=== PATIENT | male | born 1925 | race Hispanic/Latino ===

== ENCOUNTER 2016-10-08 11:45 | Inpatient (IN) | payer MEDICARE ==
[2016-10-08 11:56] VITALS: BMI 20.9
--- NOTE | 2016-10-08 12:50 | ED PDOC ---
Arrival/HPI - General Chief Complaint: Trauma Time Seen by Provider: 10/08/16 12:34 Historian: Patient - History of Present Illness Narrative History of Present Illness (Text): 10/08/16 13:48 Patient is an 89 yo male, past medical history of Parkinson's disease, presents to ED after two falls, one yesterday and one today. Patient initially reports that he went to Dr. William's office yesterday to "have a callous removed" from his right foot yesterday. He denies any symptoms at that time. He states after he went home, "my foot got caught against something" and he fell, landing onto his knees. HE DENIES A PROLONGED PERIOD OF LAYING ON THE GROUND. Patient states he stood right up and walked at his baseline. He states today "my foot got caught again" and he fell. Denies head injury or neck pain, denies chest pain or shortness of breath, denies back pain, denies hip or knee or ankle pain. Denies urinary symptoms. He denies syncope or lightheadedness prior to falling. Denies numbness or weakness. Patient's is present, states that "his legs have been giving out all week". He insists he has been eating and drinking very well. No abdominal pain, no vomiting or decreased appetite. 10/08/16 14:04 Symptom Onset: Sudden Past Medical History - Tetanus Immunization Tetanus Immunization: Up to Date - Cardiac Hx Hypertension: Yes - Neurological Hx Parkinson's Disease: Yes - Psychiatric Hx Depression: No Hx Emotional Abuse: No Hx Physical Abuse: No Hx Substance Use: No - Past Surgical History Past Surgical History: No Previous - Anesthesia Hx Anesthesia: No - Suicidal Assessment Feels Threatened In Home Enviroment: No Family/Social History Family/Social History: Unknown Family HX Smoking Status: Never Smoked Hx Alcohol Use: Yes Hx Substance Use: No Allergies/Home Meds Allergies/Adverse Reactions: Allergies No Known Allergies Allergy (Verified 10/08/16 11:56) Home Medications: Home Meds Medication Instructions Recorded Confirmed Atorvastatin [Lipitor] 10 mg PO DIN 10/08/16 10/08/16 Carbidopa/Levodopa [Sinemet Cr 1 each PO TID 10/08/16 10/08/16 25-100 Tablet] hydroCHLOROthiazide [Microzide] 12.5 mg PO DAILY 10/08/16 10/08/16 Review of Systems - Review of Systems Constitutional: absent: Fatigue, Fevers Eyes: absent: Vision Changes ENT: absent: Hearing Changes Respiratory: absent: SOB Cardiovascular: absent: Chest Pain, Palpitations, Calf Pain, CABRERA Gastrointestinal: absent: Abdominal Pain, Stool Changes, Diarrhea, Nausea, Vomiting Musculoskeletal: Arthralgias, Other (abrasions to b/l knee. eechymosis to right 2nd toe. ). absent: Neck Pain Skin: absent: Rash Neurological: Other (baseline gait disturbance he reports from his Parkinson's nothing worse). absent: Headache, Dizziness, Focal Weakness Psychiatric: absent: Depression Physical Exam - Physical Exam Narrative Physical Exam (Text): 10/08/16 12:48 Head: Atraumatic. Normocephalic. No Eyes: PERRL. EOMI. Conjunctivae are not pale. ENT: Mucous membranes are moist and intact. Oropharynx is clear and symmetric. Neck: Supple. Full ROM. No JVD. No lymphadenopathy. Cardiovascular: Regular rate. Regular rhythm. No murmurs, rubs, or gallops. Distal pulses are 2+ and symmetric. Pulmonary/Chest: No evidence of respiratory distress. Clear to auscultation bilaterally. No wheezing, rales or rhonchi. Abdominal: Soft and non-distended. There is no tenderness. No rebound, guarding, or rigidity. No organomegaly. Good bowel sounds. Back: No CVA tenderness. No midline pain. Extremities: No edema. No cyanosis. No clubbing. Full range of motion in all extremities. No calf tenderness. Abrasions to bilateral knees. No active bleeding. No purulent discharge. No surrounding erythema. ecchymosis to right 2nd toe with dressing to base of right foot. NO HIP PAIN WITH PALPATION OR ROM. NO bony knee pain with palpation, able to flex and extend at knee fully. No ankle pain. Strong DP and PT pulses. Skin: Skin is warm and dry. No petechiae. No purpura. Abrasions to bilateral knees, dressings present, no active bleeding or purulence. Neurological: Alert, awake, and oriented to person, place, time, and situation. No slurred speech. No facial droop. Motor and sensory exam at baseline, no meningeal signs, moves all four extremities equally and with good strength on stretcher. Psychiatric: Good eye contact. Normal interaction, affect, and behavior. Vital Signs Reviewed: Yes Vital Signs Temp Pulse Resp BP Pulse Ox 10/08/16 13:39 67 18 113/55 L 100 10/08/16 12:07 98.7 F 76 16 102/52 L 99 Temperature: Afebrile Blood Pressure: Hypotensive Pulse: Regular Respiratory Rate: Normal Appearance: Positive for: Well-Appearing, Non-Toxic, Comfortable Pain Distress: Mild Mental Status: Positive for: Alert and Oriented X 3 Finger Stick Blood Glucose: 137 Medical Decision Making ED Course and Treatment: 10/08/16 12:51 Impression: Patient is an 89 year old male who has fallen twice in past two days. He insists no syncope or lightheadedness. He insists with multiple interview no chest pain or shortness of breath or diaphoresis or back or abdominal pain. On exam, there is ecchymotic 2nd toe, DJD noted on xray, no obvious fracture. Multiple abrasions noted to anterior legs but NO HIP OR KNEE PAIN, patient has been ambulatory. Abrasions cleaned and dressed. Patient is noted to have elevated CPK, again he insists that he was not lying on ground for prolonged period states he "got up right away". No head injury reported or noted. Cr elevated when compared to previous. IV hydration initiated. BP improved, but patient continues to deny chest pain or lightheadedness. Troponin is elevated. HE DENIES CHEST PAIN. Denies smoking. Denies past cardiac history. As no chest pain or sob, no EKG st elevations, will consult with his patent prosecution attorney for further evaluation of this. ASA ordered. Treatment plan reviewed with patient and , agreeable to admission for cardiac monitoring, serial exams, iv hydration. 10/08/16 14:46 - Lab Interpretations Lab Results: 10/08/16 12:55 10/08/16 12:55 Lab Results 10/08/16 12:55: Sodium 145, Potassium 3.2 L, Chloride 104, Carbon Dioxide 29, Anion Gap 15, BUN 39 H, Creatinine 1.7 H, Est GFR ( Amer) 46, Est GFR ( Non-Af Amer) 38, Random Glucose 96, Calcium 9.9, Total Bilirubin 1.2, AST 104 H , ALT 53, Alkaline Phosphatase 66, Lactate Dehydrogenase 1030 H, Total Creatine Kinase 4996 H, CK-MB (CK-2) 15.5 H, CK-MB (CK-2) % 0.3 L, Troponin I 0.43 H*, Total Protein 7.3, Albumin 4.2, Globulin 3.1, Albumin/Globulin Ratio 1.4 10/08/16 12:55: PT 11.2, INR 1.04, APTT 26.8 10/08/16 12:55: WBC 8.8 D, RBC 3.80, Hgb 12.2 L, Hct 36.6 L, MCV 96.3, MCH 32.1 , MCHC 33.3, RDW 13.8, Plt Count 211, MPV 9.9, Gran % 87.0 H, Lymph % (Auto) 6.0 L, [place] % (Auto) 6.9 H, Eos % (Auto) 0.0 L, Baso % (Auto) 0.1, Gran # 7.63 H , Lymph # 0.5 L, [place] # 0.6, Eos # 0.0, Baso # 0.01 - RAD Interpretation Radiology Orders: 10/08/16 12:42 HEAD W/O CONTRAST [CT] Stat 10/08/16 12:43 FOOT RIGHT 3 VIEWS ROUTINE [RAD] Stat - EKG Interpretation EKG Interpretation (Text): 10/08/16 14:18 EKG at 76 normal sinus rhythm, prlonged qt Interpreted by ED Physician: Yes Type: 12 lead EKG - Medication Orders Current Medication Orders: Acetaminophen (Tylenol 325mg Tab) 650 mg PO Q6H PRN PRN Reason: Fever >100.4 F Atorvastatin Calcium (Lipitor) 10 mg PO DIN JACQUELIN Bacitracin (Bacitracin) 1 gm TOP BID JACQUELIN Carbidopa/Levodopa (Sinemet Cr) 1 tab PO TID JACQUELIN Hydrochlorothiazide (Microzide) 12.5 mg PO DAILY JACQUELIN Sodium Chloride (Sodium Chloride 0.9%) 1,000 mls @ 100 mls/hr IV .Q10H JACQUELIN Sodium Chloride (Sodium Chloride 0.9%) 1,000 mls @ 100 mls/hr IV .Q10H JACQUELIN Pantoprazole Sodium (Protonix Ec Tab) 40 mg PO ACB JACQUELIN Discontinued Medications Aspirin (Aspirin Chewable) 81 mg PO STAT STA Stop: 10/08/16 13:53 Sodium Chloride (Sodium Chloride 0.9%) 500 mls @ 1,000 mls/hr IV .Q30M STA Stop: 10/08/16 13:47 Potassium Chloride (K-Dur 20 Meq Er Tab) 40 meq PO STAT STA Stop: 10/08/16 13:43 Disposition/Present on Arrival - Present on Arrival Any Indicators Present on Arrival: No History of DVT/PE: No History of Uncontrolled Diabetes: No Urinary Catheter: No History of Decub. Ulcer: No History Surgical Site Infection Following: None - Disposition Have Diagnosis and Disposition been Completed?: Yes Diagnosis: Elevated troponin, Rhabdomyolysis, Renal insufficiency, Frequent falls, Abrasion of knee, bilateral, Toe contusion Disposition: HOSPITALIZED Disposition Time: 13:40 Patient Plan: Admission, Telemetry Patient Problems: Current Active Problems Problem Status Onset Abrasion of knee, bilateral Acute Elevated troponin Acute Frequent falls Acute Renal insufficiency Acute Rhabdomyolysis Acute Toe contusion Acute Condition: SERIOUS
[2016-10-08 13:03] LABS: ADD MANUAL DIFF? NO
[2016-10-08 13:07] LABS: BASO # 0.01 K/mm3 (0.0-2.0); BASO % 0.1 % (0.0-3.0); GRAN # 7.63 (1.4-6.5); HEMATOCRIT 36.6 % (42.0-52.0); LYMPH # 0.5 (1.2-3.4); MEAN CELL VOLUME 96.3 fL (80.0-105.0); MEAN CORPUSCULAR HEMOGLOBIN 32.1 pg (25.0-35.0); MEAN CORPUSCULAR HGB CONC 33.3 g/dl (31.0-37.0); MEAN PLATELET VOLUME 9.9 fl (7.0-11.0); MONO # 0.6 (0.1-0.6); MONO % 6.9 % (1.0-6.0); PLATELET COUNT 211 10^3/uL (120.0-450.0); RED CELL DISTRIBUTION WIDTH 13.8 % (11.5-14.5); WHITE BLOOD COUNT 8.8 10^3/ul (4.5-11.0)
[2016-10-08 13:15] LABS: INR 1.04 (0.93-1.08); PARTIAL THROMBOPLASTIN TIME 26.8 Seconds (23.7-30.8)
[2016-10-08 13:16] LABS: ALB/GLOB RATIO 1.4 (1.1-1.8); BILIRUBIN,TOTAL 1.2 mg/dL (0.2-1.3); CALCIUM 9.9 mg/dL (8.4-10.5); POTASSIUM 3.2 mmol/L (3.6-5.0); TOTAL PROTEIN 7.3 g/dL (5.8-8.3)
--- NOTE | 2016-10-08 13:16 | CT ---
PROCEDURE: CT HEAD WITHOUT CONTRAST. HISTORY: frequent falls COMPARISON: 10/08/2013 TECHNIQUE: Axial computed tomography images were obtained through the head/brain without intravenous contrast. Radiation dose: Total exam DLP = 688 mGy-cm. This CT exam was performed using one or more of the following dose reduction techniques: Automated exposure control, adjustment of the mA and/or kV according to patient size, and/or use of iterative reconstruction technique. FINDINGS: HEMORRHAGE: No intracranial hemorrhage. BRAIN: No mass effect or edema. The prior periventricular deep white matter hypo intensities (most pronounced posteriorly) consistent with chronic small vessel chronic small vessel ischemic change appear similar VENTRICLES: Unremarkable. No hydrocephalus. CALVARIUM: Unremarkable. PARANASAL SINUSES: Unremarkable as visualized. No significant inflammatory changes. The prior right maxillary sinus opacification has cleared MASTOID AIR CELLS: Unremarkable as visualized. No inflammatory changes. OTHER FINDINGS: None. IMPRESSION: No intracranial hemorrhage. No calvarial fracture. Chronic small vessel periventricular ischemic changes -similar-appearing
[2016-10-08] MEDS ORDERED: Sodium Chloride 0.9% 500 ML IV STA (13:18)
[2016-10-08 13:35] LABS: TROPONIN I 0.43 ng/mL
[2016-10-08] MEDS ORDERED: Potassium Chloride 20 mEq ER Tab PO STA (13:42)
--- NOTE | 2016-10-08 13:51 | RAD ---
PROCEDURE: Right Foot Radiographs. HISTORY: injury, right second toe pain COMPARISON: None. FINDINGS: BONES: There is apparent resection of the 2nd proximal and middle phalanx -prior postsurgical changes are favored. No supportive history here is mentioned. No prior studies are available. Patchy bone mineralization generalized noted. Hammertoe like orientations. Bifid medial sesamoid -likely a developmental variant JOINTS: First metatarsal-phalangeal joint osteoarthrosis SOFT TISSUES: Atherosclerotic vascular calcifications OTHER FINDINGS: None. IMPRESSION: No acute fracture appreciated. The 2nd toe changes are bleed most consistent with prior surgery. Please correlate clinically. 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
[2016-10-08] MEDS: Sodium Chloride 0.9% 1,000 ML IV SCH (14:30)
[2016-10-08] MEDS ORDERED: Sodium Chloride 0.9% 1,000 ML IV SCH (14:45)
--- NOTE | 2016-10-08 14:47 | CP.PCM.HP ---
<Malorie Elena - Last Filed: 10/08/16 15:11> History of Present Illness - History of Present Illness History of Present Illness: This is an 89Y M with PMH HTN, HLD, Parkinson's disease who came in for multiple falls. His is at bedside. She reports that yesterday the patient had a callus removal by Dr. William on his R foot. Since then he had trouble with his balance. He fell twice yesterday and got up right away. He did not hit his head or lose consciousness. They called the ambulance, but the patient refused. He then fell again this morning and fell on both his knees. He is complaining of mild pain where he fell on his knees and shins. The patient is sitting comfortably in bed, eating a sandwich. He denies CP, SOB, n/v/d, numbness/tingling. PMH: Parkinsons, HTN, HLD, falls PSH: Denies Past hospitalizations: Denies Home meds: Sinemet 25/100mg TID, HCTZ 12.5mg qd, Lipitor 10mg qd All: NKDA SH: Former smoker (quit 2yrs ago), denies EtOH or drug use. Lives with FH: Dad of [place]/Heart failure age 80 PMD: Dr. Alanis Pipe Fitter Supervisor Maintenance: Dr. Alexandre Facilities And Grounds Director: Dr. William Present on Admission - Present on Admission Any Indicators Present on Admission: No Review of Systems - Review of Systems Review of Systems: As per HPI Past Patient History - Tetanus Immunizations Tetanus Immunization: Up to Date - Past Social History Smoking Status: Former Smoker Alcohol: None Drugs: Denies Home Situation {Lives}: With Family - CARDIAC Hx Hypertension: Yes - NEUROLOGICAL Hx Parkinson's Disease: Yes - PSYCHIATRIC Hx Depression: No Hx Emotional Abuse: No Hx Physical Abuse: No Hx Substance Use: No - SURGICAL HISTORY Hx Surgeries: No - ANESTHESIA Hx Anesthesia: No Meds Allergies/Adverse Reactions: Allergies Allergy/AdvReac Type Severity Reaction Status Date / Time No Known Allergies Allergy Verified 10/08/16 11:56 Physical Exam - Constitutional Appears: No Acute Distress - Head Exam Head Exam: NORMAL INSPECTION, NORMOCEPHALIC - Eye Exam Eye Exam: Normal appearance, PERRL Pupil Exam: NORMAL ACCOMODATION - ENT Exam ENT Exam: Mucous Membranes Moist - Neck Exam Neck exam: Positive for: Normal Inspection - Respiratory Exam Respiratory Exam: Clear to Auscultation Bilateral, NORMAL BREATHING PATTERN. absent: Rales, Rhonchi, Wheezes - Cardiovascular Exam Cardiovascular Exam: REGULAR RHYTHM, +S1, +S2, Systolic Murmur. absent: Gallop , Rubs - GI/Abdominal Exam GI & Abdominal Exam: Normal Bowel Sounds, Soft. absent: Guarding, Mass, Rebound , Rigid, Tenderness - Extremities Exam Extremities exam: Positive for: pedal edema (+1). Negative for: calf tenderness , tenderness Additional comments: bilateral scrapes on both knees and shins, no bleeding seen. Dressing in place - Neurological Exam Neurological exam: Alert, CN II-XII Intact, Oriented x3 - Psychiatric Exam Psychiatric exam: Normal Affect, Normal Mood - Skin Skin Exam: Dry, Normal Color, Warm Additional comments: scrapes on both knees Wound on bottom of R foot-dressing in place Results - Vital Signs Recent Vital Signs: Last Vital Signs Temp 98.7 F 10/08/16 12:07 Pulse 67 10/08/16 13:39 Resp 18 10/08/16 13:39 BP 113/55 L 10/08/16 13:39 Pulse Ox 100 10/08/16 13:39 - Labs Result Diagrams: 10/08/16 12:55 10/08/16 12:55 - EKG Data EKG Interpreted by: Myself EKG shows normal: Sinus rhythm Rate: Normal - EKG Data When Compared to Previous EKG: No Significant Change Assessment & Plan - Assessment and Plan (Free Text) Assessment: This is an 89Y M with PMH of HTN, HLD, Parkinson's and multiple falls admitted for fall, elevated troponin, rha Plan: 1. Rhabdomyolysis - Secondary to multiple falls - CK: 5000 - NS@100 - Continue to monitor CK 2. Multiple Falls - CT head negative - Foot XR did not show fracture - Wound care for scrapes, Bacitracin BID - Podiatry Dr. William consulted - Fall precaution - Tylenol prn pain - physical therapy eval 3. TYRA - secondary to rhabdo - Cr: 1.7, Cr on 10/2015 was 1.1 - Continue to monitor - Will continue to monitor electrolytes and replace as needed 4. Elevated Troponin - secondary to rhabdo - Trop: 0.43 - EKG showed NSR - Cardiology: Dr. Alexandre consulted - Continue to monitor troponin - Lipid panel, TSH, HgbA1c - Given ASA in ED 5. HTN - Continue home med: HCTZ 6. HLD - Lipitor 10mg 7. Parkinsons - Continue Sinemet GI ppx: Protonix DVT ppx: Heparin SC Case seen, discussed and reviewed with attending Suleiman Elena PGY1 - Date & Time Date: 10/08/16 Time: 15:11 <Len Isabel - Last Filed: 10/09/16 15:34> Results - Vital Signs Recent Vital Signs: Last Vital Signs Temp 97.3 F L 10/09/16 12:00 Pulse 67 10/09/16 14:00 Resp 18 10/09/16 12:00 BP 137/74 10/09/16 12:00 Pulse Ox 97 10/09/16 05:21 - Labs Result Diagrams: 10/09/16 05:00 10/09/16 05:00 Labs: Laboratory Results - last 24 hr 10/08/16 10/09/16 10/09/16 20:13 02:15 05:00 WBC RBC Hgb Hct MCV MCH MCHC RDW Plt Count MPV Gran % Lymph % (Auto) [place] % (Auto) Eos % (Auto) Baso % (Auto) Gran # Lymph # [place] # Eos # Baso # PT INR Sodium Potassium Chloride Carbon Dioxide Anion Gap BUN Creatinine Est GFR ( Amer) Est GFR (Non-Af Amer) Random Glucose Hemoglobin A1c 5.7 Calcium Total Bilirubin AST ALT Alkaline Phosphatase Total Creatine Kinase CK-MB (CK-2) CK-MB (CK-2) % Troponin I 0.40 H* 0.25 H* D Total Protein Albumin Globulin Albumin/Globulin Ratio Triglycerides Cholesterol LDL Cholesterol Direct HDL Cholesterol TSH 3rd Generation 10/09/16 10/09/16 10/09/16 05:00 05:00 05:00 WBC 7.7 RBC 3.29 L Hgb 10.6 L Hct 32.1 L MCV 97.6 MCH 32.2 MCHC 33.0 RDW 13.8 Plt Count 175 MPV 10.4 Gran % 72.2 H Lymph % (Auto) 16.3 L [place] % (Auto) 10.4 H Eos % (Auto) 0.8 L Baso % (Auto) 0.3 Gran # 5.53 Lymph # 1.3 [place] # 0.8 H Eos # 0.1 Baso # 0.02 PT 11.8 INR 1.09 H Sodium Potassium Chloride Carbon Dioxide Anion Gap BUN Creatinine Est GFR ( Amer) Est GFR (Non-Af Amer) Random Glucose Hemoglobin A1c Calcium Total Bilirubin AST ALT Alkaline Phosphatase Total Creatine Kinase CK-MB (CK-2) CK-MB (CK-2) % Troponin I Total Protein Albumin Globulin Albumin/Globulin Ratio Triglycerides Cholesterol LDL Cholesterol Direct HDL Cholesterol TSH 3rd Generation 1.5 10/09/16 10/09/16 05:00 07:30 WBC RBC Hgb Hct MCV MCH MCHC RDW Plt Count MPV Gran % Lymph % (Auto) [place] % (Auto) Eos % (Auto) Baso % (Auto) Gran # Lymph # [place] # Eos # Baso # PT INR Sodium 141 Potassium 3.0 L Chloride 105 Carbon Dioxide 29 Anion Gap 10 BUN 32 H Creatinine 1.2 Est GFR ( Amer) > 60 Est GFR (Non-Af Amer) 57 Random Glucose 80 Hemoglobin A1c Calcium 8.5 Total Bilirubin 0.9 AST 84 H ALT 36 Alkaline Phosphatase 52 Total Creatine Kinase 2849 H CK-MB (CK-2) 12.2 H CK-MB (CK-2) % 0.4 L Troponin I Total Protein 5.6 L Albumin 3.1 Globulin 2.5 Albumin/Globulin Ratio 1.2 Triglycerides 61 Cholesterol 105 L LDL Cholesterol Direct 54 HDL Cholesterol 39 TSH 3rd Generation Attending/Attestation - Attestation I have personally seen and examined this patient.: Yes I have fully participated in the care of the patient.: Yes I have reviewed all pertinent clinical information: Yes Notes (Text): 10/09/16 15:31 attending note; patient seen and examined with resident in ER. This is a 89 Year old Male with the PMH of HTN, HLD, Parkinson's disease who came in for multiple falls. Denies any fevers, chills. CT head and CT lower extremities is negative for fracture. acute rhabdomyolysis secondary to fall. Continue IV fluids. Elevated troponin and elevated creatinine secondary to rhabdomyolysis. Monitor closely. Cardiology evaluation Requested. check orthostatic blood pressure. PT evaluation requested. case discussed with PMD in detail.
[2016-10-08] MEDS: Bacitracin Ointment 30 GM TUBE TOP SCH (18:25)
[2016-10-08] MEDS: Carbidopa/Levodopa 25/100 CR PO SCH (18:29)
--- NOTE | 2016-10-08 18:43 | CARD ---
APPROVED REPORT EKG Measurement Heart [id number] <Conclusion> Normal sinus rhythm Minimal voltage criteria for LVH, may be normal variant Prolonged QT Consider old anterior infarct Abnormal ECG
[2016-10-09] MEDS: Sodium Chloride 0.9% 1,000 ML IV SCH ×2 (00:13→10:33)
[2016-10-09 05:09] LABS: ADD MANUAL DIFF? NO
[2016-10-09 05:26] LABS: BASO # 0.02 K/mm3 (0.0-2.0); BASO % 0.3 % (0.0-3.0); EOS # 0.1 (0.0-0.7); EOS % 0.8 % (1.5-5.0); GRAN # 5.53 (1.4-6.5); GRAN % 72.2 % (50.0-68.0); HEMATOCRIT 32.1 % (42.0-52.0); LYMPH # 1.3 (1.2-3.4); LYMPH % 16.3 % (22.0-35.0); MEAN CELL VOLUME 97.6 fL (80.0-105.0); MEAN CORPUSCULAR HEMOGLOBIN 32.2 pg (25.0-35.0); MEAN PLATELET VOLUME 10.4 fl (7.0-11.0); MONO # 0.8 (0.1-0.6); MONO % 10.4 % (1.0-6.0); PLATELET COUNT 175 10^3/uL (120.0-450.0); RED CELL DISTRIBUTION WIDTH 13.8 % (11.5-14.5); WHITE BLOOD COUNT 7.7 10^3/ul (4.5-11.0)
[2016-10-09 05:27] LABS: INR 1.09 (0.93-1.08)
[2016-10-09 05:34] LABS: ALB/GLOB RATIO 1.2 (1.1-1.8); ALKALINE PHOSPHATASE 52 U/L (38-133); ALT/SGPT 36 U/L (7-56); AST/SGOT 84 U/L (15-59); BILIRUBIN,TOTAL 0.9 mg/dL (0.2-1.3); BLOOD UREA NITROGEN 32 mg/dL (7-21); CALCIUM 8.5 mg/dL (8.4-10.5); CARBON DIOXIDE 29 mmol/L (21-33); CHLORIDE 105 mmol/L (95-110); CHOLESTEROL 105 mg/dL (130-200); GFR AFRICAN-AMERICAN > 60; GLUCOSE,RANDOM 80 mg/dL (70-110); SODIUM 141 mmol/L (132-148); TOTAL PROTEIN 5.6 g/dL (5.8-8.3)
[2016-10-09] MEDS ORDERED: Potassium Chloride 40 mEq/30 ml LIQ UD PO ONE ×2 (06:05→08:23)
[2016-10-09] MEDS: Pantoprazole 40 mg EC Tab PO SCH (08:07)
--- NOTE | 2016-10-09 10:17 | CON ---
DATE: 10/09/2016 INDICATIONS: Fall, rule out syncope, rule out myocardial infarction. HISTORY OF PRESENT ILLNESS: This is an 89-year-old man known to our practice with Parkinson's disease and hypertension who was admitted through the Emergency Room yesterday after he reported several falls. He fell at least once the day before and he fell on the day of admission. On both occasions, he denies syncope or loss of consciousness. He states that his leg became weak and gave out causing him to fall to his knees. There were no palpitations or chest pain. Subsequently, he has been admitted to telemetry. He has evidence of rhabdomyolysis with elevated CKs, mildly elevated troponins and elevated creatinine. There is no chest pain, shortness of breath, orthopnea, PND, syncope, vertigo, dizziness, edema, claudication, fever, chills, cough, sputum production, hemoptysis, abdominal pain, nausea, vomiting, diarrhea, constipation, melena. PAST MEDICAL HISTORY: Notable for Parkinson's disease, hypertension, hyperlipidemia, and falls. There is no history of rheumatic fever, myocardial infarction, angina, arrhythmia, diabetes, stroke, TIA, or gout. MEDICATIONS: At the time of admission included Sinemet, hydrochlorothiazide, and Lipitor. ALLERGIES: There are no medication allergies. SOCIAL HISTORY: He lives at home with his . He does not currently smoke, although he had until 2 years ago. He denies alcohol use. FAMILY HISTORY: Notable for heart disease in his father. REVIEW OF SYSTEMS: A 10-point review of systems is otherwise unremarkable except as noted above. PHYSICAL EXAMINATION: GENERAL: He is a well-developed elderly male lying in bed on telemetry in no acute distress. VITAL SIGNS: Notable for sinus rhythm to sinus bradycardia, 55-69 beats per minute. He is afebrile. Blood pressure 126/76, respirations 18-19, O2 sat 96%- 100% on nasal cannula. HEENT: Reveals no neck vein distention, thyromegaly, or carotid bruits. Mucous membranes are moist. Conjunctivae are pink. NECK: Supple. LUNGS: Trevino clear. HEART: Revealed normal first and second heart sounds. There is a systolic murmur along the left sternal border. PMI is not palpable. ABDOMEN: Soft, bowel sounds are present. No mass, organomegaly, tenderness, rebound, guarding, CVA tenderness or a palpable abdominal aortic aneurysm. EXTREMITIES: Revealed no cyanosis, clubbing, or edema. NEUROLOGIC: He was awake, alert and oriented. SKIN: Warm and dry. No rash or cellulitis. PSYCHIATRIC: Normal as to mood and affect. LABORATORY AND IMAGING: EKG demonstrates regular sinus rhythm, LVH by voltage, prolonged QT interval. A CT scan of the head reveals no intracranial hemorrhage , no calvarial fracture, chronic small vessel ischemic changes. Right foot x- ray reveals no acute fracture. White count normal, platelet count normal, hemoglobin 10.6, hematocrit 32.1. PT, INR, PTT normal. Electrolytes normal except for potassium of 3.2, repeat 3.0. Creatinine 1.7, repeat 1.2. LFTs mildly abnormal. CK elevated at 4996. Troponins 0.43, 0.40 and 0.25. Total cholesterol 105, LDL 54, HDL 39, triglycerides 61. TSH 1.5. IMPRESSION: The patient is an 89-year-old man with Parkinson's disease and a history of falls who fell a couple of times prior to admission, had evidence of initial chronic kidney injury with elevated CK and troponins, possibly due to rhabdomyolysis. There is no evidence to suggest myocardial infarction including no chest pain or significant EKG changes. PLAN: At this time, he is admitted to telemetry. I agree with current plans. He is getting IV fluids. We will monitor CKs, troponins and I's and O's. He is having an echocardiogram. Potassium is being replaced. We should check postural vital signs. He got a dose of aspirin. He is on subcutaneous heparin , Lipitor, hydrochlorothiazide, pantoprazole. I would consider discontinuing hydrochlorothiazide in as much as it has caused significant hypokalemia, which may be a factor in muscular weakness and falls. An alternative antihypertensive can be chosen during this hospitalization. We will monitor I' s and O's, check stool for occult blood, monitor for arrhythmias on telemetry for another 24 hours. He will have podiatric followup. He should be considered a high fall risk and ambulate only with assistance while in the hospital. I will follow along with you and make additional recommendations based on his clinical course. Armen Milner MD cc: [id number] TT: 10/09/2016 10:16:51 Confirmation # [id number] Dictation # [id number]
[2016-10-09] MEDS: Bacitracin Ointment 30 GM TUBE TOP SCH ×2 (10:32→17:41)
[2016-10-09] MEDS: Carbidopa/Levodopa 25/100 CR PO SCH ×3 (10:32→17:41)
--- NOTE | 2016-10-09 11:19 | CARD ---
APPROVED REPORT EXAM: Two-dimensional and M-mode echocardiogram with Doppler and color Doppler. INDICATION ELEVATED TROPONIN 2D DIMENSIONS IVSd1.3 (0.7-1.1cm)LVDd3.7 (3.9-5.9cm) LVOT Diameter1.9 (1.8-2.4cm)PWd1.1 (0.7-1.1cm) LVDs2.8 (2.5-4.0cm)FS (%) 25.1 % LVEF (%)50.4 (>50%) M-Mode DIMENSIONS Aortic Root2.90 (2.2-3.7cm)Aortic Cusp Exc.0.70 (1.5-2.0cm) Aortic Valve AoV Peak Gtmjrwih006.0cm/sAoV VTI59.5cmAO Peak GR.29mmHg LVOT Peak Yfjmmwfl418.0cm/sLVOT VTI25.35cmAO Mean GR.16mmHg NOE (VMAX)1.43ji4LEZ (VTI)1.61pv4TN P 1/2 Uzng300ui Mitral Valve MV E Kmamtncf56.1cm/sMV A Mfnxjguk695.0cm/sE/A ratio0.7 TDI E/Lateral E'0.0E/Medial E'0.0 Tricuspid Valve TR Peak Vvekiulv445gi/sRAP KSAYZXJR26ewZbLF Peak Gr.22mmHg USMC53iiSs LEFT VENTRICLE The left ventricle is normal size. There is mild concentric left ventricular hypertrophy. The left ventricular function is normal. The left ventricular ejection fraction is within the normal range. There is normal LV segmental wall motion. RIGHT VENTRICLE The right ventricle is normal size. The right ventricular systolic function is normal. ATRIA The left atrium size is normal. The right atrium size is normal. The interatrial septum is intact with no evidence for an atrial septal defect. AORTIC VALVE The aortic valve is moderately calcified. The aortic valve is trileaflet. There is mild to moderate aortic regurgitation. There is moderate valvular aortic stenosis. MITRAL VALVE Mitral annular calcification is mild. There is no mitral valve regurgitation noted. TRICUSPID VALVE The tricuspid valve is normal in structure. There is mild tricuspid regurgitation. PULMONIC VALVE The pulmonary valve is normal in structure. There is mild pulmonic valvular regurgitation. GREAT VESSELS The aortic root is normal in size. The IVC is normal in size and collapses >50% with inspiration. PERICARDIAL EFFUSION There is no pleural effusion. There is no pericardial effusion. <Conclusion> Normal chamber size. Normal LV systolic function. Mild concentric LVH. Moderate . 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 Mild TR.
--- NOTE | 2016-10-09 12:10 | CARD ---
APPROVED REPORT EKG Measurement Heart [id number] VT [id number] <Conclusion> Normal sinus rhythm Minimal voltage criteria for LVH, may be normal variant Cannot rule out Anterior infarct, age undetermined Abnormal ECG
--- NOTE | 2016-10-09 13:36 | CP.PCM.PN ---
<JevonMalorie lott - Last Filed: 10/09/16 13:42> Subjective - Date & Time of Evaluation Date of Evaluation: 10/09/16 Time of Evaluation: 09:00 - Subjective Subjective: Hospitalist Progress Note Patient seen and examined at bedside. There were no acute overnight events. He is sitting up comfortably in chair. He reports having some pain where he has abrasions on both his knees. Otherwise he feels well. Denies CP, SOB, n/v/d, fever, chills, dysuria or hematuria. Objective - Vital Signs/Intake and Output Vital Signs (last 24 hours): Temp Pulse Resp BP Pulse Ox 97.3 F L 57 L 18 137/74 97 10/09/16 12:00 10/09/16 12:00 10/09/16 12:00 10/09/16 12:00 10/09/16 05:21 Intake and Output: 10/09/16 10/09/16 06:59 18:59 Intake Total 1320 Output Total 200 Balance 1120 - Medications Medications: Current Medications Acetaminophen (Tylenol 325mg Tab) 650 mg PO Q6H PRN PRN Reason: Fever >100.4 F Atorvastatin Calcium (Lipitor) 10 mg PO DIN [facility] Last Admin: 10/08/16 18:30 Dose: 10 mg Bacitracin (Bacitracin) 0 gm TOP BID [facility] Last Admin: 10/09/16 10:32 Dose: 1 applic Carbidopa/Levodopa (Sinemet Cr) 1 tab PO TID [facility] Last Admin: 10/09/16 10:32 Dose: 1 tab Heparin Sodium (Porcine) (Heparin) 5,000 units SC Q12 [facility] PRN Reason: Protocol Last Admin: 10/09/16 10:32 Dose: 5,000 units Sodium Chloride (Sodium Chloride 0.9%) 1,000 mls @ 100 mls/hr IV .Q10H [facility] Last Admin: 10/09/16 10:33 Dose: Not Given Pantoprazole Sodium (Protonix Ec Tab) 40 mg PO ACB [facility] Last Admin: 10/09/16 08:07 Dose: 40 mg - Labs Labs: 10/09/16 05:00 10/09/16 05:00 PT 11.8 Seconds (9.9-11.8) 10/09/16 05:00 INR 1.09 (0.93-1.08) H 10/09/16 05:00 APTT 26.8 Seconds (23.7-30.8) 10/08/16 12:55 - Constitutional Appears: No Acute Distress - Head Exam Head Exam: ATRAUMATIC, NORMAL INSPECTION, NORMOCEPHALIC - Eye Exam Eye Exam: Normal appearance Pupil Exam: NORMAL ACCOMODATION - ENT Exam ENT Exam: Mucous Membranes Moist - Neck Exam Neck Exam: Full ROM - Respiratory Exam Respiratory Exam: Clear to Ausculation Bilateral, NORMAL BREATHING PATTERN. absent: Rales, Rhonchi, Wheezes - Cardiovascular Exam Cardiovascular Exam: REGULAR RHYTHM, +S1, +S2, Murmur. absent: Gallop, Rubs - GI/Abdominal Exam GI & Abdominal Exam: Soft, Normal Bowel Sounds. absent: Guarding, Rigid, Tenderness, Mass, Rebound - Extremities Exam Extremities Exam: absent: Calf Tenderness, Pedal Edema Additional comments: abrasions on knees bilaterally R foot has dressing intact on sole - Neurological Exam Neurological Exam: Alert, Awake, CN II-XII Intact, Oriented x3 - Psychiatric Exam Psychiatric exam: Normal Affect, Normal Mood - Skin Skin Exam: Dry, Normal Color, Warm Additional comments: abrasion on knees bilaterally- dressing in place, clean and dry Assessment and Plan - Assessment and Plan (Free Text) Assessment: This is an 89Y M with PMH of HTN, HLD, Parkinson's and multiple falls admitted for fall, elevated troponin, and rhabdomyolysis. Plan: 1. Rhabdomyolysis - improving - Secondary to multiple falls - CK trending down, continue to monitor - NS@100 2. Multiple Falls - Wound care for scrapes, Bacitracin BID - Podiatry Dr. William consulted - Fall precaution - Tylenol prn pain - physical therapy suggests TCU 3. TYRA- resolved - secondary to rhabdo - Cr: 1.2 from 1.7 - Continue to monitor - Will continue to monitor electrolytes and replace as needed 4. Elevated Troponin- improved - secondary to rhabdo - Trop: 0.25 from 0.43 - Cardiology consulted-recs appreciated - Lipid panel, TSH and HgbA1c normal - Echo showed EF of 50%, moderate aortic stenosis, mild to moderate aortic insufficiency 5. HTN - HCTZ d/c as per cardio recs for hypokalemia, muscle weakness and attribute to falls - Will start Lisinopril 5mg 6. HLD - Continue Lipitor 7. Parkinson's - Continue Sinemet GI ppx: Protonix DVT ppx: Heparin SC Dispo: Patient will be evaluated for TCU. The patient and his agrees with further rehabilitation to reduce risk of falls. Case seen, discussed and reviewed with attending Suleiman Elena PGY1 <Len Isabel - Last Filed: 10/09/16 15:37> Objective - Vital Signs/Intake and Output Vital Signs (last 24 hours): Temp Pulse Resp BP Pulse Ox 97.3 F L 67 18 137/74 97 10/09/16 12:00 10/09/16 14:00 10/09/16 12:00 10/09/16 12:00 10/09/16 05:21 Intake and Output: 10/09/16 10/09/16 06:59 18:59 Intake Total 1320 1080 Output Total 200 500 Balance 1120 580 - Medications Medications: Current Medications Acetaminophen (Tylenol 325mg Tab) 650 mg PO Q6H PRN PRN Reason: Fever >100.4 F Atorvastatin Calcium (Lipitor) 10 mg PO DIN [facility] Last Admin: 10/08/16 18:30 Dose: 10 mg Bacitracin (Bacitracin) 0 gm TOP BID [facility] Last Admin: 10/09/16 10:32 Dose: 1 applic Carbidopa/Levodopa (Sinemet Cr) 1 tab PO TID [facility] Last Admin: 10/09/16 14:12 Dose: 1 tab Heparin Sodium (Porcine) (Heparin) 5,000 units SC Q12 [facility] PRN Reason: Protocol Last Admin: 10/09/16 10:32 Dose: 5,000 units Sodium Chloride (Sodium Chloride 0.9%) 1,000 mls @ 100 mls/hr IV .Q10H [facility] Last Admin: 10/09/16 10:33 Dose: Not Given Lisinopril (Zestril) 5 mg PO DAILY [facility] Pantoprazole Sodium (Protonix Ec Tab) 40 mg PO ACB [facility] Last Admin: 10/09/16 08:07 Dose: 40 mg - Labs Labs: 10/09/16 05:00 10/09/16 05:00 PT 11.8 Seconds (9.9-11.8) 10/09/16 05:00 INR 1.09 (0.93-1.08) H 10/09/16 05:00 APTT 26.8 Seconds (23.7-30.8) 10/08/16 12:55 Attending/Attestation - Attestation I have personally seen and examined this patient.: Yes I have fully participated in the care of the patient.: Yes I have reviewed all pertinent clinical information, including history, physical exam and plan: Yes Notes (Text): 10/09/16 15:36 attending note; attending note; patient seen and examined with resident. This is a 89 Year old Male with the PMH of HTN, HLD, Parkinson's disease who came in for multiple falls. Denies any dizziness. acute rhabdomyolysis secondary to fall. Continue IV fluids.CPK is improving. Elevated troponin and elevated creatinine secondary to rhabdomyolysis. troponin is improving. Acute renal failure resolved. Cardiology evaluation appreciated. PT evaluation appreciated. TCU recommended. upon discharge follow-up with PMD .
--- NOTE | 2016-10-09 17:55 | PN ---
DATE: 10/09/2016 This is an 89-year-old male seen for calluses to his feet. He has a history of falls. He was seen i n the office 2 days ago wherein I took off all of his calluses and he had been placed in padding. Th e patient does have x-rays which were done on 10/08 and shows that there was some resection of the seco nd proximal and middle phalanx, postsurgical changes, arteriosclerotic vascular calcification and no acute findings were found at this time. PHYSICAL EXAMINATION: VASCULAR: Shows 1/4 palpable pedal pulses to his feet bilaterally. He does have capillary refill ti me x 2 to all of his toes and temperature gradient is within normal limits. NEUROLOGIC: Sensation is intact to sharp dull discrimination. He has rigid hammertoes x 10. He has atrophy of the plantar fat pad and a chronic callus submetatarsal 2 which does cause pain. It is co mfortable at this time since it was recently debrided. I had offered to the patient to come in on a monthly basis to have the callus removed, but his had refused stating she could not afford to pineda ve him come in monthly. LABORATORY DATA: Reviewed. His white blood cell count is 7.7, the H and H is 10.6 and 32.1 and the platelets are 175. Chemistry showed BUN and creatinine of 32 and 1.2. His total says creatine kinas e was ____ and his hemoglobin A1c was 5.7. 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 PLAN OF TREATMENT: At this time, the callus had been debrided and there is no signs of infection at this time. The patient will continue wearing the padding which I had given him at the office and he will be seen and followed as needed. Rosemarie William DPM cc: [id number] TT: 10/09/2016 17:54:27 Confirmation # [id number] Dictation # [id number] sasha
[2016-10-10] MEDS: Sodium Chloride 0.9% 1,000 ML IV SCH (03:20)
[2016-10-10 08:04] LABS: ADD MANUAL DIFF? NO
[2016-10-10 08:07] LABS: BASO # 0.01 K/mm3 (0.0-2.0); BASO % 0.2 % (0.0-3.0); EOS # 0.1 (0.0-0.7); EOS % 1.4 % (1.5-5.0); GRAN # 4.17 (1.4-6.5); GRAN % 71.1 % (50.0-68.0); HEMATOCRIT 34.7 % (42.0-52.0); LYMPH # 1.1 (1.2-3.4); LYMPH % 18.1 % (22.0-35.0); MEAN CELL VOLUME 97.2 fL (80.0-105.0); MEAN CORPUSCULAR HEMOGLOBIN 31.9 pg (25.0-35.0); MEAN CORPUSCULAR HGB CONC 32.9 g/dl (31.0-37.0); MEAN PLATELET VOLUME 10.4 fl (7.0-11.0); MONO # 0.5 (0.1-0.6); MONO % 9.2 % (1.0-6.0); PLATELET COUNT 168 10^3/uL (120.0-450.0); RED CELL DISTRIBUTION WIDTH 13.7 % (11.5-14.5); WHITE BLOOD COUNT 5.9 10^3/ul (4.5-11.0)
[2016-10-10 08:39] LABS: ALB/GLOB RATIO 1.1 (1.1-1.8); ALKALINE PHOSPHATASE 59 U/L (38-133); ALT/SGPT 34 U/L (7-56); AST/SGOT 66 U/L (15-59); BILIRUBIN,TOTAL 0.7 mg/dL (0.2-1.3); BLOOD UREA NITROGEN 24 mg/dL (7-21); CALCIUM 8.2 mg/dL (8.4-10.5); CARBON DIOXIDE 26 mmol/L (21-33); CHLORIDE 109 mmol/L (98-107); GFR AFRICAN-AMERICAN > 60; GLUCOSE,RANDOM 84 mg/dL (70-110); POTASSIUM 3.7 mmol/L (3.6-5.0); SODIUM 142 mmol/L (132-148); TOTAL PROTEIN 5.9 g/dL (5.8-8.3)
--- NOTE | 2016-10-10 08:42 | CP.PCM.PN ---
Subjective - Date & Time of Evaluation Date of Evaluation: 10/10/16 Time of Evaluation: 07:00 - Subjective Subjective: Stable on 2R. he feels better. Was OOB to chair and amb with PT yesterday. V/S noted. RSR PE: Lungs: clear Cor.: S1S2 Abd.: soft Ext.: no edema Neuro. alert I/O= 2480/1075 Labs pending Echo: Nl LV, Mod. , Mild/mod. AI, Mild TR Objective - Vital Signs/Intake and Output Vital Signs (last 24 hours): Temp Pulse Resp BP Pulse Ox 97.9 F 64 20 144/80 99 10/10/16 05:36 10/10/16 05:36 10/10/16 05:36 10/10/16 05:36 10/10/16 05:36 Intake and Output: 10/10/16 10/10/16 06:59 18:59 Intake Total 1040 Output Total 425 Balance 615 - Medications Medications: Current Medications Acetaminophen (Tylenol 325mg Tab) 650 mg PO Q6H PRN PRN Reason: Fever >100.4 F Atorvastatin Calcium (Lipitor) 10 mg PO DIN [facility] Last Admin: 10/09/16 17:41 Dose: 10 mg Bacitracin (Bacitracin) 0 gm TOP BID [facility] Last Admin: 10/09/16 17:41 Dose: 1 applic Carbidopa/Levodopa (Sinemet Cr) 1 tab PO TID [facility] Last Admin: 10/09/16 17:41 Dose: 1 tab Heparin Sodium (Porcine) (Heparin) 5,000 units SC Q12 [facility] PRN Reason: Protocol Last Admin: 10/09/16 21:34 Dose: 5,000 units Sodium Chloride (Sodium Chloride 0.9%) 1,000 mls @ 100 mls/hr IV .Q10H [facility] Last Admin: 10/10/16 03:20 Dose: 100 mls/hr Lisinopril (Zestril) 5 mg PO DAILY [facility] Potassium Chloride (K-Dur 20 Meq Er Tab) 30 meq PO TID [facility] - Labs Labs: 10/10/16 06:30 10/09/16 05:00 PT 11.8 Seconds (9.9-11.8) 10/09/16 05:00 INR 1.09 (0.93-1.08) H 10/09/16 05:00 APTT 26.8 Seconds (23.7-30.8) 10/08/16 12:55 Assessment and Plan - Assessment and Plan (Free Text) Plan: Assessment: Falls Rhabdomyolysis Parkinson's Disease , moderate with mild/mod. AI HBP HLD Former Smoker Plan: Await AM labs. Replace K+ vigorously OOB/Amb. with assistance/High Fall Risk TCU eval.
--- NOTE | 2016-10-10 08:46 | CP.PCM.PN ---
<JevonMalorie lott - Last Filed: 10/10/16 08:36> Subjective - Date & Time of Evaluation Date of Evaluation: 10/10/16 Time of Evaluation: 08:36 - Subjective Subjective: Hospitalist Progress Note Patient seen and examined at bedside. There were no acute overnight events. He reports that he has been working well with physical therapist. He says he feels well. He does not have any pain, CP, SOB, n/v/d, numbness/tingling, fever or chills, dysuria or hematuria. Objective - Vital Signs/Intake and Output Vital Signs (last 24 hours): Temp Pulse Resp BP Pulse Ox 97.9 F 64 20 144/80 99 10/10/16 05:36 10/10/16 05:36 10/10/16 05:36 10/10/16 05:36 10/10/16 05:36 Intake and Output: 10/10/16 10/10/16 06:59 18:59 Intake Total 1040 Output Total 425 Balance 615 - Medications Medications: Current Medications Acetaminophen (Tylenol 325mg Tab) 650 mg PO Q6H PRN PRN Reason: Fever >100.4 F Atorvastatin Calcium (Lipitor) 10 mg PO DIN [facility] Last Admin: 10/09/16 17:41 Dose: 10 mg Bacitracin (Bacitracin) 0 gm TOP BID [facility] Last Admin: 10/09/16 17:41 Dose: 1 applic Carbidopa/Levodopa (Sinemet Cr) 1 tab PO TID [facility] Last Admin: 10/09/16 17:41 Dose: 1 tab Heparin Sodium (Porcine) (Heparin) 5,000 units SC Q12 [facility] PRN Reason: Protocol Last Admin: 10/09/16 21:34 Dose: 5,000 units Sodium Chloride (Sodium Chloride 0.9%) 1,000 mls @ 100 mls/hr IV .Q10H [facility] Last Admin: 10/10/16 03:20 Dose: 100 mls/hr Lisinopril (Zestril) 5 mg PO DAILY [facility] Potassium Chloride (K-Dur 20 Meq Er Tab) 30 meq PO TID [facility] - Labs Labs: 10/10/16 06:30 10/09/16 05:00 PT 11.8 Seconds (9.9-11.8) 10/09/16 05:00 INR 1.09 (0.93-1.08) H 10/09/16 05:00 APTT 26.8 Seconds (23.7-30.8) 10/08/16 12:55 - Constitutional Appears: No Acute Distress - Head Exam Head Exam: ATRAUMATIC, NORMAL INSPECTION, NORMOCEPHALIC - Eye Exam Eye Exam: Normal appearance Pupil Exam: NORMAL ACCOMODATION - ENT Exam ENT Exam: Mucous Membranes Moist - Neck Exam Neck Exam: Full ROM, Normal Inspection - Respiratory Exam Respiratory Exam: Clear to Ausculation Bilateral, NORMAL BREATHING PATTERN. absent: Rales, Rhonchi, Wheezes - Cardiovascular Exam Cardiovascular Exam: REGULAR RHYTHM, +S1, +S2. absent: Gallop, Rubs, Murmur - GI/Abdominal Exam GI & Abdominal Exam: Soft, Normal Bowel Sounds. absent: Rigid, Tenderness, Mass , Rebound - Extremities Exam Extremities Exam: Full ROM, Normal Inspection. absent: Calf Tenderness, Pedal Edema - Neurological Exam Neurological Exam: Alert, Awake, CN II-XII Intact, Oriented x3 - Psychiatric Exam Psychiatric exam: Normal Affect, Normal Mood - Skin Skin Exam: Dry, Intact, Normal Color, Warm Assessment and Plan - Assessment and Plan (Free Text) Assessment: This is an 89Y M with PMH of HTN, HLD, Parkinson's and multiple falls admitted for fall, elevated troponin, and rhabdomyolysis. Plan: 1. Rhabdomyolysis - improved - Secondary to multiple falls - CK trending down - Continue to monitor CK - NS@100- will dc fluids tomorrow 2. Multiple Falls - Continue Fall precaution - Continue Wound Care - Bacitracin BID - Podiatry consulted- recs appreciated - Tylenol prn pain - Continue Physical Therapy 3. Elevated Troponin- resolved - secondary to rhabdomyolysis - Cardiology consulted-recs appreciated - Lipid panel, TSH and HgbA1c normal - Echo showed EF of 50%, moderate aortic stenosis, mild to moderate aortic insufficiency - D/C monitor technician 5. HTN - Continue Lisinopril 5mg 6. HLD - Continue Lipitor daily 7. Parkinson's - Continue Sinemet - Continue physical therapy for balance GI ppx: Protonix DVT ppx: Heparin SC Dispo: Patient will be d/c to TCU in AM. The patient and his agrees with plan to reduce risk of falls. Case seen, discussed and reviewed with attending Suleiman Elena PGY1 <Len Isabel - Last Filed: 10/10/16 15:36> Objective - Vital Signs/Intake and Output Vital Signs (last 24 hours): Temp Pulse Resp BP Pulse Ox 97.8 F 71 20 157/87 H 99 10/10/16 12:00 10/10/16 12:00 10/10/16 12:00 10/10/16 12:00 10/10/16 05:36 Intake and Output: 10/10/16 10/10/16 06:59 18:59 Intake Total 1040 Output Total 425 Balance 615 - Medications Medications: Current Medications Acetaminophen (Tylenol 325mg Tab) 650 mg PO Q6H PRN PRN Reason: Fever >100.4 F Atorvastatin Calcium (Lipitor) 10 mg PO DIN [facility] Last Admin: 10/09/16 17:41 Dose: 10 mg Bacitracin (Bacitracin) 0 gm TOP BID [facility] Last Admin: 10/10/16 11:02 Dose: Not Given Carbidopa/Levodopa (Sinemet Cr) 1 tab PO TID [facility] Last Admin: 10/10/16 10:43 Dose: 1 tab Heparin Sodium (Porcine) (Heparin) 5,000 units SC Q12 [facility] PRN Reason: Protocol Last Admin: 10/10/16 10:42 Dose: 5,000 units Sodium Chloride (Sodium Chloride 0.9%) 1,000 mls @ 100 mls/hr IV .Q10H [facility] Last Admin: 10/10/16 03:20 Dose: 100 mls/hr Lisinopril (Zestril) 5 mg PO DAILY [facility] Last Admin: 10/10/16 10:43 Dose: 5 mg Potassium Chloride (K-Dur 20 Meq Er Tab) 30 meq PO TID [facility] Last Admin: 10/10/16 10:42 Dose: 30 meq - Labs Labs: 10/10/16 06:30 10/10/16 06:30 PT 10.8 Seconds (9.9-11.8) 10/10/16 09:30 INR 1.00 (0.93-1.08) 10/10/16 09:30 APTT 26.8 Seconds (23.7-30.8) 10/08/16 12:55 Attending/Attestation - Attestation I have personally seen and examined this patient.: Yes I have fully participated in the care of the patient.: Yes I have reviewed all pertinent clinical information, including history, physical exam and plan: Yes Notes (Text): 10/10/16 15:34 attending note; patient seen and examined with resident. This is a 89 Year old Male with the PMH of HTN, HLD, Parkinson's disease who came in for multiple falls. Denies any dizziness. acute rhabdomyolysis secondary to fall. Continue IV fluids.CPK is improving. Elevated troponin and elevated creatinine secondary to rhabdomyolysis. troponin is improving. Acute renal failure resolved. Cardiology evaluation appreciated. dc telemetry. PT evaluation appreciated. TCU recommended. Transfer to TCU when bed available. upon discharge follow-up with PMD . 10/10/16 15:36
[2016-10-10] MEDS: Pantoprazole 40 mg EC Tab PO SCH (09:08)
[2016-10-10] MEDS ORDERED: Bacitracin 500 Units/gm Oint Foilpak UD ONE (10:40)
[2016-10-10] MEDS: Potassium Chloride 20 mEq ER Tab PO SCH ×3 (10:42→18:35)
[2016-10-10] MEDS: Carbidopa/Levodopa 25/100 CR PO SCH ×3 (10:43→18:36)
[2016-10-10] MEDS: Bacitracin Ointment 30 GM TUBE TOP SCH ×3 (10:49→18:35)
[2016-10-11] MEDS: Sodium Chloride 0.9% 1,000 ML IV SCH (02:30)
[2016-10-11 06:47] VITALS: RESP 20; TEMP 97.6; O2SAT 99
[2016-10-11 07:51] LABS: ADD MANUAL DIFF? NO
[2016-10-11 07:58] LABS: BASO # 0.02 K/mm3 (0.0-2.0); BASO % 0.4 % (0.0-3.0); EOS # 0.1 (0.0-0.7); EOS % 2.1 % (1.5-5.0); GRAN # 4.05 (1.4-6.5); GRAN % 72.2 % (50.0-68.0); HEMATOCRIT 36.7 % (42.0-52.0); LYMPH % 18.2 % (22.0-35.0); MEAN CELL VOLUME 96.3 fL (80.0-105.0); MEAN CORPUSCULAR HEMOGLOBIN 31.8 pg (25.0-35.0); MEAN PLATELET VOLUME 10.7 fl (7.0-11.0); MONO # 0.4 (0.1-0.6); MONO % 7.1 % (1.0-6.0); PLATELET COUNT 182 10^3/uL (120.0-450.0); RED CELL DISTRIBUTION WIDTH 13.9 % (11.5-14.5); WHITE BLOOD COUNT 5.6 10^3/ul (4.5-11.0)
[2016-10-11 08:07] LABS: INR 0.99 (0.93-1.08)
[2016-10-11 08:18] LABS: ALB/GLOB RATIO 1.1 (1.1-1.8); ALKALINE PHOSPHATASE 67 U/L (38-133); ALT/SGPT 36 U/L (7-56); AST/SGOT 44 U/L (15-59); BILIRUBIN,TOTAL 0.7 mg/dL (0.2-1.3); BLOOD UREA NITROGEN 16 mg/dL (7-21); CALCIUM 8.8 mg/dL (8.4-10.5); CARBON DIOXIDE 27 mmol/L (21-33); CHLORIDE 108 mmol/L (98-107); GFR AFRICAN-AMERICAN > 60; GLUCOSE,RANDOM 82 mg/dL (70-110); POTASSIUM 4.8 mmol/L (3.6-5.0); SODIUM 141 mmol/L (132-148); TOTAL PROTEIN 6.3 g/dL (5.8-8.3)
[2016-10-11] MEDS: Potassium Chloride 20 mEq ER Tab PO SCH ×2 (09:47→13:03)
[2016-10-11] MEDS: Carbidopa/Levodopa 25/100 CR PO SCH ×2 (09:47→13:02)
[2016-10-11] MEDS: Bacitracin Ointment 30 GM TUBE TOP SCH (09:51)
--- NOTE | 2016-10-11 12:01 | CP.PCM.DIS ---
<Malorie Elena - Last Filed: 10/11/16 11:59> Provider - Provider Date of Admission: 10/08/16 13:54 Attending physician: Len Isabel MD Primary care physician: Shemar Hurley MD Consults: Cardio: Bettie Podiatry: Nataliia Time Spent in preparation of Discharge (in minutes): 35 Hospital Course - Lab Results Lab Results: Most Recent Lab Values WBC 5.6 10^3/ul (4.5-11.0) 10/11/16 07:45 RBC 3.81 10^6/uL (3.5-6.1) 10/11/16 07:45 Hgb 12.1 gm/dL (14.0-18.0) L 10/11/16 07:45 Hct 36.7 % (42.0-52.0) L 10/11/16 07:45 MCV 96.3 fL (80.0-105.0) 10/11/16 07:45 MCH 31.8 pg (25.0-35.0) 10/11/16 07:45 MCHC 33.0 g/dl (31.0-37.0) 10/11/16 07:45 RDW 13.9 % (11.5-14.5) 10/11/16 07:45 Plt Count 182 10^3/uL (120.0-450.0) 10/11/16 07:45 MPV 10.7 fl (7.0-11.0) 10/11/16 07:45 Gran % 72.2 % (50.0-68.0) H 10/11/16 07:45 Lymph % (Auto) 18.2 % (22.0-35.0) L 10/11/16 07:45 Hidalgo % (Auto) 7.1 % (1.0-6.0) H 10/11/16 07:45 Eos % (Auto) 2.1 % (1.5-5.0) 10/11/16 07:45 Baso % (Auto) 0.4 % (0.0-3.0) 10/11/16 07:45 Gran # 4.05 (1.4-6.5) 10/11/16 07:45 Lymph # 1.0 (1.2-3.4) L 10/11/16 07:45 Hidalgo # 0.4 (0.1-0.6) 10/11/16 07:45 Eos # 0.1 (0.0-0.7) 10/11/16 07:45 Baso # 0.02 K/mm3 (0.0-2.0) 10/11/16 07:45 PT 10.7 Seconds (9.9-11.8) 10/11/16 07:45 INR 0.99 (0.93-1.08) 10/11/16 07:45 APTT 26.8 Seconds (23.7-30.8) 10/08/16 12:55 Sodium 141 mmol/L (132-148) 10/11/16 07:45 Potassium 4.8 mmol/L (3.6-5.0) 10/11/16 07:45 Chloride 108 mmol/L (98-107) H 10/11/16 07:45 Carbon Dioxide 27 mmol/L (21-33) 10/11/16 07:45 Anion Gap 11 (10-20) 10/11/16 07:45 BUN 16 mg/dL (7-21) 10/11/16 07:45 Creatinine 1.0 mg/dL (0.5-1.4) 10/11/16 07:45 Est GFR ( Amer) > 60 10/11/16 07:45 Est GFR (Non-Af Amer) > 60 10/11/16 07:45 Random Glucose 82 mg/dL (70-110) 10/11/16 07:45 Hemoglobin A1c 5.7 % (4.2-6.5) 10/09/16 05:00 Calcium 8.8 mg/dL (8.4-10.5) 10/11/16 07:45 Total Bilirubin 0.7 mg/dL (0.2-1.3) 10/11/16 07:45 AST 44 U/L (15-59) 10/11/16 07:45 ALT 36 U/L (7-56) 10/11/16 07:45 Alkaline Phosphatase 67 U/L (38-133) 10/11/16 07:45 Lactate Dehydrogenase 1030 U/L (333-699) H 10/08/16 12:55 Total Creatine Kinase 470 U/L (35-230) H 10/11/16 07:45 CK-MB (CK-2) 5.5 ng/mL (0.0-3.6) H 10/11/16 07:45 CK-MB (CK-2) % 1.2 % (2.5-3.0) L 10/11/16 07:45 Troponin I 0.25 ng/mL H* D 10/09/16 02:15 Total Protein 6.3 g/dL (5.8-8.3) 10/11/16 07:45 Albumin 3.3 g/dL (3.0-4.8) 10/11/16 07:45 Globulin 3.0 gm/dL 10/11/16 07:45 Albumin/Globulin Ratio 1.1 (1.1-1.8) 10/11/16 07:45 Triglycerides 61 mg/dL (35-160) 10/09/16 05:00 Cholesterol 105 mg/dL (130-200) L 10/09/16 05:00 LDL Cholesterol Direct 54 mg/dL (0-129) 10/09/16 05:00 HDL Cholesterol 39 mg/dL (29-60) 10/09/16 05:00 TSH 3rd Generation 1.5 MIU/ml (0.46-4.68) 10/09/16 05:00 - Hospital Course Hospital Course: This is a 89Y M with PMH HTN, HLD and Parkinsons who was admitted for rhabdomyolysis, TYRA, elevated troponin and multiple falls. TYRA and elevated troponin thought to be secondary to rhabdomyolysis. All have resolved with IV hydration. Echo showed EF 52% with severe aortic insufficiency. Patients HCTZ was changed to Lisinopril for hypokalemia and increased risk of muscle breakdown with HCTZ. Physical therapy recommended TCU for further strengthening , gait and balance training. Patient remained stable throughout stay and agrees with the plan. Patient will be transferred to TCU once bed available. Discharge Exam - Head Exam Head Exam: ATRAUMATIC, NORMAL INSPECTION, NORMOCEPHALIC - Eye Exam Eye Exam: Normal appearance Pupil Exam: NORMAL ACCOMODATION - ENT Exam ENT Exam: Mucous Membranes Moist - Neck Exam Neck exam: Full Rom - Respiratory Exam Respiratory Exam: Clear to PA & Lateral, NORMAL BREATHING PATTERN, UNREMARKABLE. absent: Rales, Rhonchi, Wheezes - Cardiovascular Exam Cardiovascular Exam: REGULAR RHYTHM, +S1, +S2. absent: Gallop, Rubs, Systolic Murmur - GI/Abdominal Exam GI & Abdominal Exam: Normal Bowel Sounds, Soft, Unremarkable. absent: Mass, Rebound, Rigid, Tenderness - Extremities Exam Extremities exam: normal inspection - Neurological Exam Neurological exam: Alert, CN II-XII Intact, Oriented x3 - Psychiatric Exam Psychiatric exam: Normal Affect, Normal Mood - Skin Skin Exam: Dry, Normal Color, Warm Discharge Plan - Follow Up Plan Condition: SERIOUS Disposition: TRANSF TO SNF Instructions: Renal Failure Diet (DC), Rhabdomyolysis (DC) Additional Instructions: 1. Continue current treatment 2. D/C to TCU for further strengthening 3. Continue Medications 4. Consult Podiatry only Referrals: Shemar Hurley MD [Primary Care Provider] - Clinical Quality Measures - Date & Time of Discharge Summary Date of Discharge Summary: 10/11/16 Time of Discharge Summary: 12:01 <Len Isabel - Last Filed: 10/11/16 15:30> Provider - Provider Date of Admission: 10/08/16 13:54 Attending physician: Len Isabel MD Primary care physician: Shemar Hurley MD Hospital Course - Lab Results Lab Results: Most Recent Lab Values WBC 5.6 10^3/ul (4.5-11.0) 10/11/16 07:45 RBC 3.81 10^6/uL (3.5-6.1) 10/11/16 07:45 Hgb 12.1 gm/dL (14.0-18.0) L 10/11/16 07:45 Hct 36.7 % (42.0-52.0) L 10/11/16 07:45 MCV 96.3 fL (80.0-105.0) 10/11/16 07:45 MCH 31.8 pg (25.0-35.0) 10/11/16 07:45 MCHC 33.0 g/dl (31.0-37.0) 10/11/16 07:45 RDW 13.9 % (11.5-14.5) 10/11/16 07:45 Plt Count 182 10^3/uL (120.0-450.0) 10/11/16 07:45 MPV 10.7 fl (7.0-11.0) 10/11/16 07:45 Gran % 72.2 % (50.0-68.0) H 10/11/16 07:45 Lymph % (Auto) 18.2 % (22.0-35.0) L 10/11/16 07:45 Hidalgo % (Auto) 7.1 % (1.0-6.0) H 10/11/16 07:45 Eos % (Auto) 2.1 % (1.5-5.0) 10/11/16 07:45 Baso % (Auto) 0.4 % (0.0-3.0) 10/11/16 07:45 Gran # 4.05 (1.4-6.5) 10/11/16 07:45 Lymph # 1.0 (1.2-3.4) L 10/11/16 07:45 Hidalgo # 0.4 (0.1-0.6) 10/11/16 07:45 Eos # 0.1 (0.0-0.7) 10/11/16 07:45 Baso # 0.02 K/mm3 (0.0-2.0) 10/11/16 07:45 PT 10.7 Seconds (9.9-11.8) 10/11/16 07:45 INR 0.99 (0.93-1.08) 10/11/16 07:45 APTT 26.8 Seconds (23.7-30.8) 10/08/16 12:55 Sodium 141 mmol/L (132-148) 10/11/16 07:45 Potassium 4.8 mmol/L (3.6-5.0) 10/11/16 07:45 Chloride 108 mmol/L (98-107) H 10/11/16 07:45 Carbon Dioxide 27 mmol/L (21-33) 10/11/16 07:45 Anion Gap 11 (10-20) 10/11/16 07:45 BUN 16 mg/dL (7-21) 10/11/16 07:45 Creatinine 1.0 mg/dL (0.5-1.4) 10/11/16 07:45 Est GFR ( Amer) > 60 10/11/16 07:45 Est GFR (Non-Af Amer) > 60 10/11/16 07:45 Random Glucose 82 mg/dL (70-110) 10/11/16 07:45 Hemoglobin A1c 5.7 % (4.2-6.5) 10/09/16 05:00 Calcium 8.8 mg/dL (8.4-10.5) 10/11/16 07:45 Total Bilirubin 0.7 mg/dL (0.2-1.3) 10/11/16 07:45 AST 44 U/L (15-59) 10/11/16 07:45 ALT 36 U/L (7-56) 10/11/16 07:45 Alkaline Phosphatase 67 U/L (38-133) 10/11/16 07:45 Lactate Dehydrogenase 1030 U/L (333-699) H 10/08/16 12:55 Total Creatine Kinase 470 U/L (35-230) H 10/11/16 07:45 CK-MB (CK-2) 5.5 ng/mL (0.0-3.6) H 10/11/16 07:45 CK-MB (CK-2) % 1.2 % (2.5-3.0) L 10/11/16 07:45 Troponin I 0.25 ng/mL H* D 10/09/16 02:15 Total Protein 6.3 g/dL (5.8-8.3) 10/11/16 07:45 Albumin 3.3 g/dL (3.0-4.8) 10/11/16 07:45 Globulin 3.0 gm/dL 10/11/16 07:45 Albumin/Globulin Ratio 1.1 (1.1-1.8) 10/11/16 07:45 Triglycerides 61 mg/dL (35-160) 10/09/16 05:00 Cholesterol 105 mg/dL (130-200) L 10/09/16 05:00 LDL Cholesterol Direct 54 mg/dL (0-129) 10/09/16 05:00 HDL Cholesterol 39 mg/dL (29-60) 10/09/16 05:00 TSH 3rd Generation 1.5 MIU/ml (0.46-4.68) 10/09/16 05:00 Attending/Attestation - Attestation I have personally seen and examined this patient.: Yes I have fully participated in the care of the patient.: Yes I have reviewed all pertinent clinical information, including history, physical exam and plan: Yes Notes (Text): 10/11/16 15:29 patient seen and examined with resident. This is a 89 Year old Male with the PMH of HTN, HLD, Parkinson's disease who came in for multiple falls. Denies any dizziness. acute rhabdomyolysis secondary to fall. Treated with IV fluids.CPK improved. Elevated troponin and elevated creatinine secondary to rhabdomyolysis. Acute renal failure resolved. Cardiology evaluation appreciated.= PT evaluation appreciated. TCU recommended. Transfer to TCU today. upon discharge follow-up with PMD .
[2016-10-11 12:11] VITALS: BP 152/80; PULSE 66
--- NOTE | 2016-10-11 14:12 | PN ---
DATE: 10/11/2016 SUBJECTIVE: The patient is seen sitting in a chair on 3R. He is comfortable at the present time. H e awaits transfer to TCU. He denies any chest pain or dyspnea. CURRENT MEDICATIONS: Include subcutaneous heparin, Lipitor 10 mg daily, Sinemet, Zestril 5 mg daily. OBJECTIVE: GENERAL: He is a very elderly man who is comfortable at rest. VITAL SIGNS: His blood pressure is 150/80 with a pulse of 70 and regular, respirations are 16. He i s afebrile. HEENT: No JVD. CHEST: A few scattered rhonchi. HEART: PMI displaced laterally with a systolic murmur at the base. ABDOMEN: Soft, nontender, normoactive bowel sounds. EXTREMITIES: dressing is present over the anterior aspect of both lower extremities. DIAGNOSTIC DATA: Potassium is 4.8, BUN and creatinine 16 and 1.0. CK is 470, hemoglobin and hematoc rit 12.1 and 36.7. White count 5.6, platelet count 182,000. IMPRESSION: 1. Resolving rhabdomyolysis, status post recent mechanical fall. 2. History of Parkinson's disease. 3. History of moderate aortic stenosis. RECOMMENDATIONS: From a cardiac standpoint, current management should continue. Conservative cardia c care is advised. He appears stable for transfer to TCU. The need for excessive fall precautions w as discussed at length with him and his . We will be happy to see as needed. Kane Alexandre MD cc: [id number] TT: 10/11/2016 14:11:24 Confirmation # [id number] Dictation # [id number] sasha
== END 2016-10-11 13:39 | DRG 683 ==
LOC: ED 11:45 → ERH 13:54 → 2RNO 15:56 → 3RNO 10-10 12:54
PROVIDERS: ADMIT Internal Medicine; ATTEND Internal Medicine
DX: N17.9 Acute kidney failure, unspecified (principal); M62.82 Rhabdomyolysis; G20 Parkinson's disease; I35.0 Nonrheumatic aortic (valve) stenosis; E87.6 Hypokalemia; I10 Essential (primary) hypertension; E78.5 Hyperlipidemia, unspecified; S80.212A Abrasion, left knee, initial encounter; S80.211A Abrasion, right knee, initial encounter; M20.40 Other hammer toe(s) (acquired), unspecified foot; L84 Corns and callosities; W19.XXXA Unspecified fall, initial encounter; R29.6 Repeated falls; Z87.891 Personal history of nicotine dependence; Y93.89 Activity, other specified; Y92.098 Other place in other non-institutional residence as the place of occurrence of the external cause; Y99.8 Other external cause status; Z82.49 Family history of ischemic heart disease and other diseases of the circulatory system

== ENCOUNTER 2016-10-11 13:44 | Inpatient (IN) | payer OTHER, MEDICARE ==
[2016-10-11] MEDS: Carbidopa/Levodopa 25/100 CR PO SCH ×2 (14:00→17:21)
[2016-10-11 16:13] VITALS: BMI 21.6
[2016-10-11] MEDS ORDERED: Pneumococcal 23-Valent Vaccine IM ONE (16:13)
[2016-10-11] MEDS: Bacitracin 500 Units/gm Oint Foilpak UD TOP SCH (17:30)
[2016-10-11] MEDS ORDERED: Potassium Chloride 20 mEq ER Tab PO SCH (20:00)
[2016-10-12] MEDS: Carbidopa/Levodopa 25/100 CR PO SCH ×3 (09:49→17:56)
[2016-10-12] MEDS: Bacitracin 500 Units/gm Oint Foilpak UD TOP SCH ×2 (09:50→17:55)
--- NOTE | 2016-10-12 10:39 | CP.PCM.HP ---
<Malorie Elena - Last Filed: 10/12/16 10:35> History of Present Illness - History of Present Illness History of Present Illness: This is a 89Y M with PMH HTN, HLD and Parkinsons who was admitted for rhabdomyolysis, TYRA, elevated troponin and multiple falls. TYRA and elevated troponin thought to be secondary to rhabdomyolysis. All have resolved with IV hydration. Patient is now in TCU for strengthening and gait training. He reports feeling well today. He has mild pain in his legs where he fell, but overall feels good. He denies CP, SOB, n/v/d, numbness/tingling, fever or chills. He says his goal during rehab is to be able to walk to bathroom on his own. PMH: Parkinsons, HTN, HLD, falls PSH: Denies Past hospitalizations: Denies Home meds: Sinemet 25/100mg TID, Lipitor 10mg qd, HCTZ- now changed to Lisinopril 5mg All: NKDA SH: Former smoker (quit 2yrs ago), denies EtOH or drug use. Lives with FH: Dad of [place]/Heart failure age 80 PMD: Dr. Alanis Endodontic Assistant: Dr. Alexandre Mobility Architect: Dr. William Present on Admission - Present on Admission Any Indicators Present on Admission: No Review of Systems - Review of Systems Review of Systems: As per HPI Past Patient History - Tetanus Immunizations Tetanus Immunization: Up to Date - Past Social History Smoking Status: Former Smoker Alcohol: None Drugs: Denies Home Situation {Lives}: With Family - CARDIAC Hx Cardiac Disorders: No Hx Congestive Heart Failure: No Hx Hypercholesterolemia: No Hx Hypertension: No - PULMONARY Hx Chronic Obstructive Pulmonary Disease (COPD): No - NEUROLOGICAL HX Cerebrovascular Accident: No - HEENT Hx HEENT Problems: No Hx Blind: No Hx Cataracts: No Hx Deafness: No Hx Difficulty Chewing: No Hx Epistaxis: No Hx Glaucoma: No Hx Macular Degeneration: No - RENAL Hx Renal Failure: No - ENDOCRINE/METABOLIC Hx Diabetes Mellitus Type 1: No Hx Diabetes Mellitus Type 2: No - HEMATOLOGICAL/ONCOLOGICAL Hx Blood Disorders: No Hx AIDS: No Hx Anemia: No Hx Cancer: No Hx Chemotherapy: No Hx Cirrhosis: No Hx Hemophilia: No Hx Hepatitis A: No Hx Hepatitis B: No Hx Hepatitis C: No Hx Human Immunodeficiency Virus (HIV): No Hx Metastesis: No Hx Shingles: No Hx Unexplained Bleeding: No - INTEGUMENTARY Hx Dermatological Problems: No Hx Basil Cell: No Hx Eczema: No Hx Melanoma: No Hx Psoriasis: No Hx Squamous Cell: No - MUSCULOSKELETAL/RHEUMATOLOGICAL Hx Falls: Yes (5/2 x2 and 5/3 x1) - GASTROINTESTINAL Hx Gastrointestinal Disorders: No Hx Colostomy: No Hx Crohn's Disease: No Hx Diverticulitis: No Hx Gall Bladder Disease: No Hx Gastroesophageal Reflux: No Hx Ileostomy: No Hx Liver Failure: No Hx Pancreatitis: No HX Swallowing Problems: No Hx Ulcer: No - GENITOURINARY/GYNECOLOGICAL Hx Reproductive Disorders: No - PSYCHIATRIC Hx Substance Use: No - SURGICAL HISTORY Hx Surgeries: Yes (10/07 callus removal) Hx Cardiac Catheterization: No Hx Coronary Stent: No - ANESTHESIA Hx Anesthesia: No Meds Allergies/Adverse Reactions: Allergies Allergy/AdvReac Type Severity Reaction Status Date / Time No Known Allergies Allergy Verified 10/11/16 13:53 Physical Exam - Constitutional Appears: No Acute Distress - Head Exam Head Exam: ATRAUMATIC, NORMAL INSPECTION, NORMOCEPHALIC - Eye Exam Eye Exam: Normal appearance, PERRL Pupil Exam: NORMAL ACCOMODATION, PERRL - ENT Exam ENT Exam: Mucous Membranes Moist - Neck Exam Neck exam: Positive for: Normal Inspection - Respiratory Exam Respiratory Exam: Clear to Auscultation Bilateral, NORMAL BREATHING PATTERN. absent: Rales, Rhonchi, Wheezes - Cardiovascular Exam Cardiovascular Exam: REGULAR RHYTHM, +S1, +S2. absent: Gallop, Rubs, Systolic Murmur - GI/Abdominal Exam GI & Abdominal Exam: Normal Bowel Sounds, Soft. absent: Mass, Rebound, Rigid, Tenderness - Extremities Exam Extremities exam: Positive for: normal inspection. Negative for: calf tenderness, pedal edema - Neurological Exam Neurological exam: Alert, CN II-XII Intact, Oriented x3 - Psychiatric Exam Psychiatric exam: Normal Affect, Normal Mood - Skin Skin Exam: Dry, Normal Color, Warm Additional comments: Scrapes on shins bilaterally- healing Results - Vital Signs Recent Vital Signs: Last Vital Signs Temp 97.7 F 10/12/16 07:16 Pulse 66 10/12/16 07:16 Resp 20 10/12/16 07:16 BP 143/78 10/12/16 09:49 Pulse Ox 97 05/07/17 07:16 Assessment & Plan - Assessment and Plan (Free Text) Assessment: This is an 89Y M with PMH of HTN, HLD, Parkinson's and multiple falls admitted for fall, elevated troponin, and rhabdomyolysis all resolved and is now in TCU for strengthening and gait training. Plan: 1. Falls - Continue fall precaution - Continue wound care- Bacitracin BID on affected areas - Podiatry consulted- recs appreciated - Tylenol prn pain - continue to work with PT and reach goal of walking to bathroom on own. 2. HTN - Home med HCTZ was changed to Lisinopril - Continue Lisinopril 5mg daily 3. HLD - Lipitor 4. Parkinson's Disease - Sinemet TID - Physical therapy for balance training GI ppx: Protonix DVT ppx: Heparin SC Upon D/C patient can follow up with PMD, Dr. Hurley. Case seen, discussed and reviewed with attending Suleiman Elena PGY1 - Date & Time Date: 10/12/16 Time: 10:45 <Len Isabel - Last Filed: 10/12/16 14:51> Results - Vital Signs Recent Vital Signs: Last Vital Signs Temp 97.7 F 10/12/16 07:16 Pulse 66 10/12/16 07:16 Resp 20 10/12/16 07:16 BP 143/78 10/12/16 09:49 Pulse Ox 97 10/12/16 07:16 Attending/Attestation - Attestation I have personally seen and examined this patient.: Yes I have fully participated in the care of the patient.: Yes I have reviewed all pertinent clinical information: Yes Notes (Text): 10/12/16 14:49 Attending note; Patient seen and examined with resident. This is a 89 year old Male with PMH HTN, HLD and Parkinsons who was admitted for rhabdomyolysis, TYRA, elevated troponin and multiple falls. TYRA and elevated troponin thought to be secondary to rhabdomyolysis. Treated with IV fluids. Currently transferred to TCU for gait training. Patient is clinically stable. Continue physical therapy. Upon discharge the patient will follow-up with PMD .
[2016-10-13] MEDS: Carbidopa/Levodopa 25/100 CR PO SCH ×3 (09:29→17:08)
[2016-10-13] MEDS: Bacitracin 500 Units/gm Oint Foilpak UD TOP SCH ×2 (10:38→17:08)
[2016-10-13 14:17] LABS: ADD MANUAL DIFF? NO
[2016-10-13 14:24] LABS: BASO # 0.02 K/mm3 (0.0-2.0); BASO % 0.3 % (0.0-3.0); EOS # 0.1 (0.0-0.7); EOS % 1.4 % (1.5-5.0); GRAN # 4.51 (1.4-6.5); GRAN % 69.4 % (50.0-68.0); HEMATOCRIT 36.8 % (42.0-52.0); LYMPH # 1.6 (1.2-3.4); LYMPH % 24.3 % (22.0-35.0); MEAN CELL VOLUME 96.8 fL (80.0-105.0); MEAN CORPUSCULAR HEMOGLOBIN 32.1 pg (25.0-35.0); MEAN CORPUSCULAR HGB CONC 33.2 g/dl (31.0-37.0); MEAN PLATELET VOLUME 9.9 fl (7.0-11.0); MONO # 0.3 (0.1-0.6); MONO % 4.6 % (1.0-6.0); PLATELET COUNT 211 10^3/uL (120.0-450.0); RED CELL DISTRIBUTION WIDTH 14.1 % (11.5-14.5); WHITE BLOOD COUNT 6.5 10^3/ul (4.5-11.0)
[2016-10-13 14:29] LABS: ALB/GLOB RATIO 1.2 (1.1-1.8); ALKALINE PHOSPHATASE 64 U/L (38-133); ALT/SGPT 37 U/L (7-56); AST/SGOT 49 U/L (15-59); BILIRUBIN,TOTAL 0.6 mg/dL (0.2-1.3); BLOOD UREA NITROGEN 26 mg/dL (7-21); CALCIUM 9.3 mg/dL (8.4-10.5); CARBON DIOXIDE 29 mmol/L (21-33); CHLORIDE 100 mmol/L (98-107); GFR AFRICAN-AMERICAN > 60; GLUCOSE,RANDOM 116 mg/dL (70-110); POTASSIUM 4.4 mmol/L (3.6-5.0); SODIUM 139 mmol/L (132-148); TOTAL PROTEIN 6.7 g/dL (5.8-8.3)
[2016-10-14] MEDS: Bacitracin 500 Units/gm Oint Foilpak UD TOP SCH ×2 (10:41→17:29)
[2016-10-14] MEDS: Carbidopa/Levodopa 25/100 CR PO SCH ×3 (10:42→17:29)
--- NOTE | 2016-10-14 12:46 | CP.PCM.PN ---
<Adolfo Lance - Last Filed: 10/14/16 17:28> Subjective - Date & Time of Evaluation Date of Evaluation: 10/14/16 Time of Evaluation: 07:00 - Subjective Subjective: This is a 89Y M with PMH HTN, HLD and Parkinsons who was admitted for rhabdomyolysis, TYRA, elevated troponin and multiple falls. TYRA and elevated troponin thought to be secondary to rhabdomyolysis. All have resolved with IV hydration. Patient is now in TCU for strengthening and gait training. He reports feeling better. He denies CP, SOB, n/v/d, numbness/tingling, fever or chills. He says his goal during rehab is to be able to walk to bathroom on his own. Objective - Vital Signs/Intake and Output Vital Signs (last 24 hours): Temp Pulse Resp BP Pulse Ox 97.4 F L 80 18 134/81 100 10/14/16 10:00 10/14/16 10:42 10/14/16 10:00 10/14/16 10:42 10/14/16 10:00 - Medications Medications: Current Medications Acetaminophen (Tylenol 325mg Tab) 650 mg PO Q6H PRN; Protocol PRN Reason: Fever >100.4 F Atorvastatin Calcium (Lipitor) 10 mg PO DIN JACQUELIN PRN Reason: Protocol Last Admin: 10/13/16 16:45 Dose: 10 mg Bacitracin (Bacitracin) 1 ea TOP BID JACQUELIN PRN Reason: Protocol Last Admin: 10/14/16 10:41 Dose: 1 ea Carbidopa/Levodopa (Sinemet Cr) 1 tab PO TID JACQUELIN PRN Reason: Protocol Last Admin: 10/14/16 10:42 Dose: 1 tab Heparin Sodium (Porcine) (Heparin) 5,000 units SC Q12 JACQUELIN PRN Reason: Protocol Last Admin: 10/14/16 10:43 Dose: 5,000 units Lisinopril (Zestril) 5 mg PO DAILY JACQUELIN PRN Reason: Protocol Last Admin: 10/14/16 10:42 Dose: 5 mg - Labs Labs: 10/13/16 14:00 10/13/16 14:00 - Constitutional Appears: Non-toxic, No Acute Distress - Head Exam Head Exam: ATRAUMATIC, NORMOCEPHALIC - Eye Exam Eye Exam: EOMI - ENT Exam ENT Exam: Mucous Membranes Moist - Neck Exam Neck Exam: Full ROM, Normal Inspection. absent: Lymphadenopathy - Respiratory Exam Respiratory Exam: Clear to Ausculation Bilateral, NORMAL BREATHING PATTERN - Cardiovascular Exam Cardiovascular Exam: REGULAR RHYTHM, +S1, +S2, Murmur (Systolic) - GI/Abdominal Exam GI & Abdominal Exam: Soft, Normal Bowel Sounds. absent: Tenderness - Extremities Exam Extremities Exam: absent: Joint Swelling, Tenderness Additional comments: BL LE wounds healing well with new dressing - Neurological Exam Neurological Exam: Alert, Awake, Oriented x3 - Psychiatric Exam Psychiatric exam: Normal Affect, Normal Mood - Skin Skin Exam: Dry, Intact, Normal Color, Warm Assessment and Plan - Assessment and Plan (Free Text) Assessment: This is an 89Y M with PMH of HTN, HLD, Parkinson's and multiple falls admitted for fall, elevated troponin, and rhabdomyolysis all resolved and is now in TCU for strengthening and gait training. Plan: 1. Falls - Continue fall precaution - Continue wound care- Bacitracin BID on affected areas - Podiatry consulted- recs appreciated -pre-ulcerative lesion sub R 5th metatarsal head sharply, excisonally debrided with #15 blade to healthy skin without incident -patient to follow up with as an outpatient -podiatry will continue to follow patient while in house - Tylenol prn pain - continue to work with PT and reach goal of walking to bathroom on own. - per pt. PT will increase his activity to twice daily 2. HTN - Home med HCTZ was changed to Lisinopril - Continue Lisinopril 5mg daily 3. HLD - Lipitor 4. Parkinson's Disease - Sinemet TID - Physical therapy for balance training GI ppx: Protonix DVT ppx: Heparin SC Upon D/C patient can follow up with PMD, Dr. Hurley. Case seen, discussed and reviewed with attending <Pamella Cotto - Last Filed: 10/15/16 12:04> Objective - Vital Signs/Intake and Output Vital Signs (last 24 hours): Temp Pulse Resp BP Pulse Ox 98.3 F 72 20 102/54 L 98 10/15/16 10:00 10/15/16 10:00 10/15/16 10:00 10/15/16 10:00 10/15/16 10:00 Intake and Output: 10/15/16 10/15/16 06:59 18:59 Intake Total 580 Output Total 300 Balance 280 - Medications Medications: Current Medications Acetaminophen (Tylenol 325mg Tab) 650 mg PO Q6H PRN; Protocol PRN Reason: Fever >100.4 F Atorvastatin Calcium (Lipitor) 10 mg PO DIN JACQUELIN PRN Reason: Protocol Last Admin: 10/14/16 17:29 Dose: 10 mg Bacitracin (Bacitracin) 1 ea TOP BID JACQUELIN PRN Reason: Protocol Last Admin: 10/15/16 09:28 Dose: 1 ea Carbidopa/Levodopa (Sinemet Cr) 1 tab PO TID JACQUELIN PRN Reason: Protocol Last Admin: 10/15/16 09:28 Dose: 1 tab Heparin Sodium (Porcine) (Heparin) 5,000 units SC Q12 JACQUELIN PRN Reason: Protocol Last Admin: 10/15/16 09:28 Dose: 5,000 units Lisinopril (Zestril) 5 mg PO DAILY JACQUELIN PRN Reason: Protocol Last Admin: 10/14/16 10:42 Dose: 5 mg - Labs Labs: 10/13/16 14:00 10/13/16 14:00 Attending/Attestation - Attestation I have personally seen and examined this patient.: Yes I have fully participated in the care of the patient.: Yes I have reviewed all pertinent clinical information, including history, physical exam and plan: Yes Notes (Text): I have seen and examined the patient at bedside. This is 89 year old male with history of HTN, HLD and Parkinsons who was admitted for rhabdomyolysis, TYRA, elevated troponin and multiple falls. TYRA and elevated troponin thought to be secondary to rhabdomyolysis which got resolved with IV fluids. He has been participating in physical therapy in TCU. Will closely monitor BP. Upon discharge the patient will follow-up with PMD . Dr Pamella Cotto
--- NOTE | 2016-10-14 14:59 | CP.PCM.CON ---
<Mi Ngo - Last Filed: 10/14/16 14:55> History of Present Illness - History of Present Illness History of Present Illness: 89 year old male with PMHx including HTN, HLD and Parkinsons who was admitted for rhabdomyolysis, TYRA, elevated troponin and multiple falls was seen at bedside with attending, Dr. Beckett for foot care. Patient states that he sees Dr. William in office and she trims his calluses. He denies any pain to his feet b/l. He states that therapy is helping a lot. He denies n/v/f/c/sob/cp. Past Patient History - Tetanus Immunizations Tetanus Immunization: Up to Date - Past Social History Smoking Status: Former Smoker Alcohol: None Drugs: Denies Home Situation {Lives}: With Family - CARDIAC Hx Cardiac Disorders: No Hx Congestive Heart Failure: No Hx Hypercholesterolemia: No Hx Hypertension: No - PULMONARY Hx Chronic Obstructive Pulmonary Disease (COPD): No - NEUROLOGICAL HX Cerebrovascular Accident: No - HEENT Hx HEENT Problems: No Hx Blind: No Hx Cataracts: No Hx Deafness: No Hx Difficulty Chewing: No Hx Epistaxis: No Hx Glaucoma: No Hx Macular Degeneration: No - RENAL Hx Renal Failure: No - ENDOCRINE/METABOLIC Hx Diabetes Mellitus Type 1: No Hx Diabetes Mellitus Type 2: No Hx Hypothyroidism: No - HEMATOLOGICAL/ONCOLOGICAL Hx Blood Disorders: No Hx AIDS: No Hx Anemia: No Hx Cancer: No Hx Chemotherapy: No Hx Cirrhosis: No Hx Hemophilia: No Hx Hepatitis A: No Hx Hepatitis B: No Hx Hepatitis C: No Hx Human Immunodeficiency Virus (HIV): No Hx Metastesis: No Hx Shingles: No Hx Unexplained Bleeding: No - INTEGUMENTARY Hx Dermatological Problems: No Hx Basil Cell: No Hx Eczema: No Hx Melanoma: No Hx Psoriasis: No Hx Squamous Cell: No - MUSCULOSKELETAL/RHEUMATOLOGICAL Hx Arthritis: No Hx Rheumatoid Arthritis: No - GASTROINTESTINAL Hx Gastrointestinal Disorders: No Hx Colostomy: No Hx Crohn's Disease: No Hx Diverticulitis: No Hx Gall Bladder Disease: No Hx Gastroesophageal Reflux: No Hx Ileostomy: No Hx Liver Failure: No Hx Pancreatitis: No HX Swallowing Problems: No Hx Ulcer: No - GENITOURINARY/GYNECOLOGICAL Hx Reproductive Disorders: No - PSYCHIATRIC Hx Substance Use: No - SURGICAL HISTORY Hx Surgeries: Yes (5/2 callus removal) Hx Cardiac Catheterization: No Hx Coronary Stent: No - ANESTHESIA Hx Anesthesia: No Meds Allergies/Adverse Reactions: Allergies Allergy/AdvReac Type Severity Reaction Status Date / Time No Known Allergies Allergy Verified 10/11/16 13:53 - Medications Medications: Current Medications Acetaminophen (Tylenol 325mg Tab) 650 mg PO Q6H PRN; Protocol PRN Reason: Fever >100.4 F Atorvastatin Calcium (Lipitor) 10 mg PO DIN JACQUELIN PRN Reason: Protocol Last Admin: 10/13/16 16:45 Dose: 10 mg Bacitracin (Bacitracin) 1 ea TOP BID JACQUELIN PRN Reason: Protocol Last Admin: 10/14/16 10:41 Dose: 1 ea Carbidopa/Levodopa (Sinemet Cr) 1 tab PO TID JACQUELIN PRN Reason: Protocol Last Admin: 10/14/16 14:37 Dose: 1 tab Heparin Sodium (Porcine) (Heparin) 5,000 units SC Q12 JACQUELIN PRN Reason: Protocol Last Admin: 10/14/16 10:43 Dose: 5,000 units Lisinopril (Zestril) 5 mg PO DAILY JACQUELIN PRN Reason: Protocol Last Admin: 10/14/16 10:42 Dose: 5 mg Physical Exam - Constitutional Appears: Non-toxic, No Acute Distress - Extremities Exam Additional comments: Lower extremity focused exam: Vasc: DP and PT pulses faintly palpable b/l. Skin temperature warm to cool from proximal to distal b/l.CFT < 4 seconds to all digits b/l. Ortho: No pain on palpation to plantar aspect of feet b/l. Neuro: Gross sensation diminished b/l. Derm: Pre-ulcerative lesions noted to the plantar aspect of the right 5th metatarsal, no open lesions, no drainage, no purulence, no probe to bone, no acute signs of infection noted. - Neurological Exam Neurological exam: Alert, Oriented x3 - Psychiatric Exam Psychiatric exam: Normal Affect, Normal Mood Results - Vital Signs Recent Vital Signs: Last Vital Signs Temp 97.4 F L 10/14/16 10:00 Pulse 80 10/14/16 10:42 Resp 18 10/14/16 10:00 BP 134/81 10/14/16 10:42 Pulse Ox 100 10/14/16 10:00 - Labs Result Diagrams: 10/13/16 14:00 10/13/16 14:00 Assessment & Plan - Assessment and Plan (Free Text) Assessment: 89 year old male with pre-ulcerative lesion noted to the plantar aspect of 5th metatarsal head Plan: patient examined and evaluated with attending, Dr. Beckett chart, vitals, labs reviewed pre-ulcerative lesion sub R 5th metatarsal head sharply, excisonally debrided with #15 blade to healthy skin without incident continue physical therapy patient to follow up with as an outpatient podiatry will continue to follow patient while in house <Stone Beckett - Last Filed: 10/17/16 11:31> Meds - Medications Medications: Current Medications Acetaminophen (Tylenol 325mg Tab) 650 mg PO Q6H PRN; Protocol PRN Reason: Fever >100.4 F Atorvastatin Calcium (Lipitor) 10 mg PO DIN JACQUELIN PRN Reason: Protocol Last Admin: 10/16/16 18:08 Dose: 10 mg Bacitracin (Bacitracin) 1 ea TOP BID JACQUELIN PRN Reason: Protocol Last Admin: 10/17/16 09:39 Dose: 1 ea Carbidopa/Levodopa (Sinemet Cr) 1 tab PO TID JACQUELIN PRN Reason: Protocol Last Admin: 10/17/16 09:40 Dose: 1 tab Docusate Sodium (Colace) 100 mg PO DAILY JACQUELIN Last Admin: 10/17/16 09:39 Dose: 100 mg Heparin Sodium (Porcine) (Heparin) 5,000 units SC Q12 JACQUELIN PRN Reason: Protocol Last Admin: 10/17/16 09:39 Dose: 5,000 units Lisinopril (Zestril) 5 mg PO DAILY JACQUELIN PRN Reason: Protocol Last Admin: 10/17/16 09:40 Dose: 5 mg Results - Vital Signs Recent Vital Signs: Last Vital Signs Temp 97.8 F 10/17/16 06:00 Pulse 70 10/17/16 09:40 Resp 20 10/17/16 06:00 BP 108/63 10/17/16 09:40 Pulse Ox 96 10/17/16 06:00 - Labs Result Diagrams: 10/13/16 14:00 10/13/16 14:00 Attending/Attestation - Attestation I have personally seen and examined this patient.: Yes I have fully participated in the care of the patient.: Yes I have reviewed all pertinent clinical information: Yes
--- NOTE | 2016-10-15 09:03 | PN ---
DATE: 10/15/2016 SUBJECTIVE: The patient is seen lying in bed in the TCU. He states he is comfortable. He had a tra nsient drop in blood pressure yesterday to 86/47. He was reportedly asymptomatic at the time. CURRENT MEDICATIONS: Include subcutaneous heparin, Lipitor 10 mg daily, Sinemet and Zestril 5 mg arthur ly. OBJECTIVE: GENERAL: He is a very elderly man, appears comfortable at the present time. VITAL SIGNS: His blood pressure is 122/70 with a pulse of 66, respirations are 16. He is afebrile. HEENT: No JVD. CHEST: A few scattered rhonchi. HEART: PMI displaced laterally with a systolic murmur at the left sternal border. ABDOMEN: Soft, nontender, normoactive bowel sounds. EXTREMITIES: No edema. DIAGNOSTIC DATA: No blood work pending from this morning. IMPRESSION: 1. Status post recent fall with mild rhabdomyolysis, clinically improved. 2. History of Parkinson's disease. 3. Gait instability. 4. Moderate aortic stenosis. RECOMMENDATIONS: His current medication should be continued for now. If he does have additional epi sodes of hypotension, his SPENCER inhibitor may need to be discontinued. He likely has some degree of or thostasis given his Parkinson's disease. In general, conservative management is advised at present t manan. His aortic stenosis appears to be asymptomatic. We will be happy to see him in the future as n amaris and follow up in the office upon discharge. Kane Alexandre MD cc: [id number] TT: 10/15/2016 09:02:53 Confirmation # [id number] Dictation # [id number] tn
[2016-10-15] MEDS: Carbidopa/Levodopa 25/100 CR PO SCH ×3 (09:28→17:31)
[2016-10-15] MEDS: Bacitracin 500 Units/gm Oint Foilpak UD TOP SCH ×2 (09:28→17:30)
[2016-10-15] MEDS: POLYETHYLENE GLYCOL 3350 17 GM/Dose PACKET PO SCH (17:30)
[2016-10-16] MEDS: POLYETHYLENE GLYCOL 3350 17 GM/Dose PACKET PO SCH (10:16)
[2016-10-16] MEDS: Carbidopa/Levodopa 25/100 CR PO SCH ×3 (10:17→18:09)
--- NOTE | 2016-10-16 15:19 | CP.PCM.PN ---
<Adolfo Lance - Last Filed: 10/16/16 15:16> Subjective - Date & Time of Evaluation Date of Evaluation: 10/16/16 Time of Evaluation: 07:00 - Subjective Subjective: 89 yo M with PMHx of HTN, HLD, Parkinson's Dz admitted for rhabdomyolysis, TYRA, elevated tropnin secondary to fall. Pt is in TCU for strength and gait training , and his superficial knee and tibial lacerations are healing normally with dressings changed daily. He reports gradually improving ambulatory balance and LE strength with PT. Pt denies fever, chills, PERDOMO, sore throat, earache, rhinorrhea, dyspnea, palpitations, dizziness, weakness, N/V/D/C, dysuria, hematuria, anesthesia, paresthesia. Objective - Vital Signs/Intake and Output Vital Signs (last 24 hours): Temp Pulse Resp BP Pulse Ox 97.6 F 65 18 99/57 L 98 10/16/16 10:00 10/16/16 10:00 10/16/16 10:00 10/16/16 10:00 10/16/16 10:00 Intake and Output: 10/16/16 10/16/16 06:59 18:59 Intake Total 420 Balance 420 - Medications Medications: Current Medications Acetaminophen (Tylenol 325mg Tab) 650 mg PO Q6H PRN; Protocol PRN Reason: Fever >100.4 F Atorvastatin Calcium (Lipitor) 10 mg PO DIN JACQUELIN PRN Reason: Protocol Last Admin: 10/15/16 17:30 Dose: 10 mg Bacitracin (Bacitracin) 1 ea TOP BID JACQUELIN PRN Reason: Protocol Last Admin: 10/15/16 17:30 Dose: 1 ea Carbidopa/Levodopa (Sinemet Cr) 1 tab PO TID JACQUELIN PRN Reason: Protocol Last Admin: 10/16/16 14:58 Dose: 1 tab Docusate Sodium (Colace) 100 mg PO DAILY JACQUELIN Last Admin: 10/16/16 10:16 Dose: 100 mg Heparin Sodium (Porcine) (Heparin) 5,000 units SC Q12 JACQUELIN PRN Reason: Protocol Last Admin: 10/16/16 10:22 Dose: 5,000 units Lisinopril (Zestril) 5 mg PO DAILY JACQUELIN PRN Reason: Protocol Last Admin: 10/14/16 10:42 Dose: 5 mg - Labs Labs: 10/13/16 14:00 10/13/16 14:00 - Constitutional Appears: Well, Non-toxic, No Acute Distress - Head Exam Head Exam: ATRAUMATIC, NORMOCEPHALIC - Eye Exam Eye Exam: EOMI, Normal appearance. absent: Conjunctival injection - ENT Exam ENT Exam: Mucous Membranes Moist, Normal Exam - Neck Exam Neck Exam: Full ROM, Normal Inspection - Respiratory Exam Respiratory Exam: Clear to Ausculation Bilateral, NORMAL BREATHING PATTERN. absent: Rales, Rhonchi, Wheezes, Respiratory Distress - Cardiovascular Exam Cardiovascular Exam: REGULAR RHYTHM, +S1, +S2, Murmur. absent: Gallop, Rubs Additional comments: R 2nd ICS crescendo-decrescendo murmur - GI/Abdominal Exam GI & Abdominal Exam: Soft, Diminished Bowel Sounds. absent: Tenderness, Pulsatile Mass, Rebound - Rectal Exam Rectal Exam: Deferred - Back Exam Back Exam: NORMAL INSPECTION. absent: CVA tenderness (L), CVA tenderness (R) - Neurological Exam Neurological Exam: Alert, Altered, Awake, CN II-XII Intact, Oriented x3, Reflexes Normal Neuro motor strength exam: Left Upper Extremity: 5, Right Upper Extremity: 5, Left Lower Extremity: 5, Right Lower Extremity: 5 - Psychiatric Exam Psychiatric exam: Normal Mood - Skin Skin Exam: Pallor, Warm Assessment and Plan - Assessment and Plan (Free Text) Assessment: This is an 89Y M with PMH of HTN, HLD, Parkinson's and multiple falls admitted for fall, elevated troponin, and rhabdomyolysis all resolved and is now in TCU for strengthening and gait training. Plan: 1. Falls - Continue fall precaution - Continue wound care- Bacitracin BID on affected areas - Podiatry consulted- recs appreciated -pre-ulcerative lesion sub R 5th metatarsal head sharply, excisonally debrided with #15 blade to healthy skin without incident -patient to follow up with as an outpatient -podiatry will continue to follow patient while in house - Tylenol prn pain - continue to work with PT and reach goal of walking to bathroom on own. - per pt. Physical Therapy will increase his activity to twice daily - per pt. gradually improving ambulatory balance and LE strength with PT 2. HTN - Home med HCTZ was changed to Lisinopril - restart Lisinopril 5mg daily due to slightly elevated BP, was on hold yesterday 3. HLD - Lipitor 4. Parkinson's Disease - Sinemet TID - Physical therapy for balance training GI ppx: Protonix DVT ppx: Heparin SC Upon D/C patient can follow up with PMD, Dr. Hurley. Case seen, discussed and reviewed with attending <Pamella Cotto - Last Filed: 10/16/16 16:32> Objective - Vital Signs/Intake and Output Vital Signs (last 24 hours): Temp Pulse Resp BP Pulse Ox 97.6 F 65 18 99/57 L 98 10/16/16 10:00 10/16/16 10:00 10/16/16 10:00 10/16/16 10:00 10/16/16 10:00 Intake and Output: 10/16/16 10/16/16 06:59 18:59 Intake Total 420 Balance 420 - Medications Medications: Current Medications Acetaminophen (Tylenol 325mg Tab) 650 mg PO Q6H PRN; Protocol PRN Reason: Fever >100.4 F Atorvastatin Calcium (Lipitor) 10 mg PO DIN JACQUELIN PRN Reason: Protocol Last Admin: 10/15/16 17:30 Dose: 10 mg Bacitracin (Bacitracin) 1 ea TOP BID JACQUELIN PRN Reason: Protocol Last Admin: 10/15/16 17:30 Dose: 1 ea Carbidopa/Levodopa (Sinemet Cr) 1 tab PO TID JACQUELIN PRN Reason: Protocol Last Admin: 10/16/16 14:58 Dose: 1 tab Docusate Sodium (Colace) 100 mg PO DAILY JACQUELIN Last Admin: 10/16/16 10:16 Dose: 100 mg Heparin Sodium (Porcine) (Heparin) 5,000 units SC Q12 JACQUELIN PRN Reason: Protocol Last Admin: 10/16/16 10:22 Dose: 5,000 units Lisinopril (Zestril) 5 mg PO DAILY JACQUELIN PRN Reason: Protocol Last Admin: 10/14/16 10:42 Dose: 5 mg - Labs Labs: 10/13/16 14:00 10/13/16 14:00 Attending/Attestation - Attestation I have personally seen and examined this patient.: Yes I have fully participated in the care of the patient.: Yes I have reviewed all pertinent clinical information, including history, physical exam and plan: Yes Notes (Text): I have seen and examined the patient at bedside. This is 89 year old male with history of HTN, HLD and Parkinsons who was admitted for rhabdomyolysis, TYRA, elevated troponin and multiple falls. TYRA and elevated troponin thought to be secondary to rhabdomyolysis which got resolved with IV fluids. He has been participating in physical therapy in TCU. He had constipation which has resolved today.Patient will go home on thursday. Will closely monitor BP. Discussed in detail with Dr Alanis. Upon discharge the patient will follow- up with PMD . Dr Pamella Cotto
[2016-10-16] MEDS: Bacitracin 500 Units/gm Oint Foilpak UD TOP SCH ×2 (18:05→18:07)
[2016-10-17] MEDS: Bacitracin 500 Units/gm Oint Foilpak UD TOP SCH ×2 (09:39→17:48)
[2016-10-17] MEDS: Carbidopa/Levodopa 25/100 CR PO SCH ×3 (09:40→17:48)
[2016-10-18] MEDS: Carbidopa/Levodopa 25/100 CR PO SCH ×3 (10:29→17:43)
[2016-10-18 10:31] VITALS: RESP 18
[2016-10-18] MEDS: Bacitracin 500 Units/gm Oint Foilpak UD TOP SCH ×2 (10:36→17:44)
[2016-10-18 16:51] VITALS: O2SAT 95
--- NOTE | 2016-10-18 19:22 | CP.PCM.PN ---
<Adolfo Lance - Last Filed: 10/18/16 19:06> Subjective - Date & Time of Evaluation Date of Evaluation: 10/18/16 Time of Evaluation: 07:30 - Subjective Subjective: 89 yo M with PMHx of HTN, HLD, Parkinson's Dz admitted for rhabdomyolysis, TYRA, elevated tropnin secondary to fall. Pt is in TCU for strength and gait training. He reports he is doing well. Pt. has no complaints at this time. Objective - Vital Signs/Intake and Output Vital Signs (last 24 hours): Temp Pulse Resp BP Pulse Ox 97.5 F L 72 18 89/59 L 95 10/18/16 16:00 10/18/16 16:00 10/18/16 16:00 10/18/16 16:00 10/18/16 16:00 Intake and Output: 10/18/16 10/19/16 18:59 06:59 Intake Total 420 Output Total 300 Balance 120 - Medications Medications: Current Medications Acetaminophen (Tylenol 325mg Tab) 650 mg PO Q6H PRN; Protocol PRN Reason: Fever >100.4 F Atorvastatin Calcium (Lipitor) 10 mg PO DIN JACQUELIN PRN Reason: Protocol Last Admin: 10/18/16 17:43 Dose: 10 mg Bacitracin (Bacitracin) 1 ea TOP BID JACQUELIN PRN Reason: Protocol Last Admin: 10/18/16 17:44 Dose: 1 ea Carbidopa/Levodopa (Sinemet Cr) 1 tab PO TID JACQUELIN PRN Reason: Protocol Last Admin: 10/18/16 17:43 Dose: 1 tab Docusate Sodium (Colace) 100 mg PO DAILY JACQUELIN Last Admin: 10/18/16 10:29 Dose: 100 mg Heparin Sodium (Porcine) (Heparin) 5,000 units SC Q12 JACQUELIN PRN Reason: Protocol Last Admin: 10/18/16 10:35 Dose: 5,000 units Lisinopril (Zestril) 5 mg PO DAILY JACQUELIN PRN Reason: Protocol Last Admin: 10/18/16 10:31 Dose: Not Given - Labs Labs: 10/13/16 14:00 10/13/16 14:00 - Constitutional Appears: Well, Non-toxic, No Acute Distress - Head Exam Head Exam: ATRAUMATIC, NORMOCEPHALIC - Eye Exam Eye Exam: EOMI, Normal appearance. absent: Conjunctival injection - ENT Exam ENT Exam: Mucous Membranes Moist, Normal Exam - Neck Exam Neck Exam: Full ROM, Normal Inspection - Respiratory Exam Respiratory Exam: Clear to Ausculation Bilateral, NORMAL BREATHING PATTERN. absent: Rales, Rhonchi, Wheezes, Respiratory Distress - Cardiovascular Exam Cardiovascular Exam: REGULAR RHYTHM, +S1, +S2, Murmur. absent: Gallop, Rubs Additional comments: R 2nd ICS crescendo-decrescendo murmur - GI/Abdominal Exam GI & Abdominal Exam: Soft, Diminished Bowel Sounds. absent: Tenderness, Pulsatile Mass, Rebound - Rectal Exam Rectal Exam: Deferred - Back Exam Back Exam: NORMAL INSPECTION. absent: CVA tenderness (L), CVA tenderness (R) - Neurological Exam Neurological Exam: Alert, Altered, Awake, CN II-XII Intact, Oriented x3, Reflexes Normal Neuro motor strength exam: Left Upper Extremity: 5, Right Upper Extremity: 5, Left Lower Extremity: 5, Right Lower Extremity: 5 - Psychiatric Exam Psychiatric exam: Normal Mood - Skin Skin Exam: Pallor, Warm Assessment and Plan - Assessment and Plan (Free Text) Assessment: This is an 89Y M with PMH of HTN, HLD, Parkinson's and multiple falls admitted for fall, elevated troponin, and rhabdomyolysis all resolved and is now in TCU for strengthening and gait training. Plan: 1. Falls - Continue fall precaution - Continue wound care- Bacitracin BID on affected areas - Podiatry consulted- recs appreciated -pre-ulcerative lesion sub R 5th metatarsal head sharply, excisonally debrided with #15 blade to healthy skin without incident -patient to follow up with as an outpatient -podiatry will continue to follow patient while in house - Tylenol prn pain - continue to work with PT and reach goal of walking to bathroom on own. - per pt. Physical Therapy will increase his activity to twice daily - per pt. gradually improving ambulatory balance and LE strength with PT 2. HTN - Home med HCTZ was changed to Lisinopril - put Lisinopril on HOLD for hypotension, will monitor 3. HLD - Lipitor 4. Parkinson's Disease - Sinemet TID - Physical therapy for balance training GI ppx: Protonix DVT ppx: Heparin SC Upon D/C patient can follow up with PMD, Dr. Hurley. <Pamella Cotto - Last Filed: 10/19/16 15:31> Objective - Vital Signs/Intake and Output Vital Signs (last 24 hours): Temp Pulse Resp BP Pulse Ox 98.1 F 78 18 103/65 95 10/19/16 10:00 10/19/16 10:00 10/19/16 10:00 10/19/16 10:00 10/18/16 16:00 - Labs Labs: 10/13/16 14:00 10/13/16 14:00 Attending/Attestation - Attestation I have personally seen and examined this patient.: Yes I have fully participated in the care of the patient.: Yes I have reviewed all pertinent clinical information, including history, physical exam and plan: Yes Notes (Text): I have seen and examined the patient at bedside. This is 89 year old male with history of HTN, HLD and Parkinson disease who was admitted for rhabdomyolysis, TYRA, elevated troponin and multiple falls. TYRA and elevated troponin thought to be secondary to rhabdomyolysis which got resolved with IV fluids. He has been participating in physical therapy in TCU. He has been having regular bowel movements. Patient is scheduled to go home tomorro. All questions answered. Discussed in detail with Dr Alanis. Upon discharge the patient will follow- up with PMD Dr. Hurley. Dr Pamella Cotto
[2016-10-19] MEDS: Bacitracin 500 Units/gm Oint Foilpak UD TOP SCH (10:10)
[2016-10-19] MEDS: Carbidopa/Levodopa 25/100 CR PO SCH (10:12)
[2016-10-19 11:37] VITALS: BP 103/65; PULSE 78; TEMP 98.1
--- NOTE | 2016-10-19 18:37 | CP.PCM.DIS ---
<Adolfo Lance - Last Filed: 10/19/16 18:34> Provider - Provider Date of Admission: 10/11/16 13:44 Attending physician: Pamella Cotto MD Primary care physician: Shemar Hurley MD Time Spent in preparation of Discharge (in minutes): 35 Diagnosis - Discharge Diagnosis (1) Abrasion of knee, bilateral Status: Acute (2) Frequent falls Status: Acute Hospital Course - Lab Results Lab Results: Most Recent Lab Values WBC 6.5 10^3/ul (4.5-11.0) 10/13/16 14:00 RBC 3.80 10^6/uL (3.5-6.1) 10/13/16 14:00 Hgb 12.2 gm/dL (14.0-18.0) L 10/13/16 14:00 Hct 36.8 % (42.0-52.0) L 10/13/16 14:00 MCV 96.8 fL (80.0-105.0) 10/13/16 14:00 MCH 32.1 pg (25.0-35.0) 10/13/16 14:00 MCHC 33.2 g/dl (31.0-37.0) 10/13/16 14:00 RDW 14.1 % (11.5-14.5) 10/13/16 14:00 Plt Count 211 10^3/uL (120.0-450.0) 10/13/16 14:00 MPV 9.9 fl (7.0-11.0) 10/13/16 14:00 Gran % 69.4 % (50.0-68.0) H 10/13/16 14:00 Lymph % (Auto) 24.3 % (22.0-35.0) 10/13/16 14:00 [place] % (Auto) 4.6 % (1.0-6.0) 10/13/16 14:00 Eos % (Auto) 1.4 % (1.5-5.0) L 10/13/16 14:00 Baso % (Auto) 0.3 % (0.0-3.0) 10/13/16 14:00 Gran # 4.51 (1.4-6.5) 10/13/16 14:00 Lymph # 1.6 (1.2-3.4) 10/13/16 14:00 [place] # 0.3 (0.1-0.6) 10/13/16 14:00 Eos # 0.1 (0.0-0.7) 10/13/16 14:00 Baso # 0.02 K/mm3 (0.0-2.0) 10/13/16 14:00 Sodium 139 mmol/L (132-148) 10/13/16 14:00 Potassium 4.4 mmol/L (3.6-5.0) 10/13/16 14:00 Chloride 100 mmol/L (98-107) 10/13/16 14:00 Carbon Dioxide 29 mmol/L (21-33) 10/13/16 14:00 Anion Gap 14 (10-20) 10/13/16 14:00 BUN 26 mg/dL (7-21) H 10/13/16 14:00 Creatinine 1.2 mg/dL (0.5-1.4) 10/13/16 14:00 Est GFR ( Amer) > 60 10/13/16 14:00 Est GFR (Non-Af Amer) 57 10/13/16 14:00 Random Glucose 116 mg/dL (70-110) H 10/13/16 14:00 Calcium 9.3 mg/dL (8.4-10.5) 10/13/16 14:00 Total Bilirubin 0.6 mg/dL (0.2-1.3) 10/13/16 14:00 AST 49 U/L (15-59) 10/13/16 14:00 ALT 37 U/L (7-56) 10/13/16 14:00 Alkaline Phosphatase 64 U/L (38-133) 10/13/16 14:00 Total Protein 6.7 g/dL (5.8-8.3) 10/13/16 14:00 Albumin 3.7 g/dL (3.0-4.8) 10/13/16 14:00 Globulin 3.0 gm/dL 10/13/16 14:00 Albumin/Globulin Ratio 1.2 (1.1-1.8) 10/13/16 14:00 - Hospital Course Hospital Course: This is a 89Y M with PMH HTN, HLD and Parkinsons who was admitted to the hospital for rhabdomyolysis, TYRA, elevated troponin and multiple falls. TYRA and elevated troponin thought to be secondary to rhabdomyolysis. All have resolved with IV hydration. Patient was then discharged to the TCU for strengthening and gait training for 1 week. He was also seen by Podiatry and wound care for the lesions on his foot and legs. This is a brief account of his stay. For more details please see his chart. - Date & Time of H&P Date of H&P: 10/19/16 Time of H&P: 09:45 Discharge Exam - Head Exam Head Exam: ATRAUMATIC, NORMOCEPHALIC - Eye Exam Eye Exam: EOMI - ENT Exam ENT Exam: Mucous Membranes Moist - Neck Exam Neck exam: Full Rom - Respiratory Exam Respiratory Exam: Clear to PA & Lateral, NORMAL BREATHING PATTERN, UNREMARKABLE - Cardiovascular Exam Cardiovascular Exam: REGULAR RHYTHM, RRR, +S1, +S2, Systolic Murmur. absent: JVD, Rubs - GI/Abdominal Exam GI & Abdominal Exam: Normal Bowel Sounds, Soft, Unremarkable. absent: Tenderness - Extremities Exam Extremities exam: pedal pulses present - Back Exam Back exam: absent: rash noted - Neurological Exam Neurological exam: Alert, CN II-XII Intact, Oriented x3 - Psychiatric Exam Psychiatric exam: Normal Affect, Normal Mood - Skin Skin Exam: Dry, Intact, Normal Color, Warm Discharge Plan - Discharge Medications Prescriptions: Bacitracin 1 ea TOP BID #1 - Follow Up Plan Condition: GOOD Disposition: HOME/ ROUTINE Instructions: Hearing Loss (DC), Parkinson Disease (DC), Fall Prevention (DC) Additional Instructions: Patient is medically stable for discharge. Please follow up with your primary care doctor, Dr. Taylor within 1 week. Please follow up with [facility], Dr. Alexandre within 1 week. Please stop taking Hydrochlorothiazide and discuss your blood pressure medication with Dr. Alexandre and Dr. Taylor. Thank you for allowing us to take part in your care. Referrals: Kane Alexandre MD [Staff Provider] - Shemar Hurley MD [Primary Care Provider] - <Pamella Cotto - Last Filed: 10/19/16 19:11> Provider - Provider Date of Admission: 10/11/16 13:44 Attending physician: Pamella Cotto MD Primary care physician: Shemar Hurley MD Hospital Course - Lab Results Lab Results: Most Recent Lab Values WBC 6.5 10^3/ul (4.5-11.0) 10/13/16 14:00 RBC 3.80 10^6/uL (3.5-6.1) 10/13/16 14:00 Hgb 12.2 gm/dL (14.0-18.0) L 10/13/16 14:00 Hct 36.8 % (42.0-52.0) L 10/13/16 14:00 MCV 96.8 fL (80.0-105.0) 10/13/16 14:00 MCH 32.1 pg (25.0-35.0) 10/13/16 14:00 MCHC 33.2 g/dl (31.0-37.0) 10/13/16 14:00 RDW 14.1 % (11.5-14.5) 10/13/16 14:00 Plt Count 211 10^3/uL (120.0-450.0) 10/13/16 14:00 MPV 9.9 fl (7.0-11.0) 10/13/16 14:00 Gran % 69.4 % (50.0-68.0) H 10/13/16 14:00 Lymph % (Auto) 24.3 % (22.0-35.0) 10/13/16 14:00 [place] % (Auto) 4.6 % (1.0-6.0) 10/13/16 14:00 Eos % (Auto) 1.4 % (1.5-5.0) L 10/13/16 14:00 Baso % (Auto) 0.3 % (0.0-3.0) 10/13/16 14:00 Gran # 4.51 (1.4-6.5) 10/13/16 14:00 Lymph # 1.6 (1.2-3.4) 10/13/16 14:00 [place] # 0.3 (0.1-0.6) 10/13/16 14:00 Eos # 0.1 (0.0-0.7) 10/13/16 14:00 Baso # 0.02 K/mm3 (0.0-2.0) 10/13/16 14:00 Sodium 139 mmol/L (132-148) 10/13/16 14:00 Potassium 4.4 mmol/L (3.6-5.0) 10/13/16 14:00 Chloride 100 mmol/L (98-107) 10/13/16 14:00 Carbon Dioxide 29 mmol/L (21-33) 10/13/16 14:00 Anion Gap 14 (10-20) 10/13/16 14:00 BUN 26 mg/dL (7-21) H 10/13/16 14:00 Creatinine 1.2 mg/dL (0.5-1.4) 10/13/16 14:00 Est GFR ( Amer) > 60 10/13/16 14:00 Est GFR (Non-Af Amer) 57 10/13/16 14:00 Random Glucose 116 mg/dL (70-110) H 10/13/16 14:00 Calcium 9.3 mg/dL (8.4-10.5) 10/13/16 14:00 Total Bilirubin 0.6 mg/dL (0.2-1.3) 10/13/16 14:00 AST 49 U/L (15-59) 10/13/16 14:00 ALT 37 U/L (7-56) 10/13/16 14:00 Alkaline Phosphatase 64 U/L (38-133) 10/13/16 14:00 Total Protein 6.7 g/dL (5.8-8.3) 10/13/16 14:00 Albumin 3.7 g/dL (3.0-4.8) 10/13/16 14:00 Globulin 3.0 gm/dL 10/13/16 14:00 Albumin/Globulin Ratio 1.2 (1.1-1.8) 10/13/16 14:00 Attending/Attestation - Attestation I have personally seen and examined this patient.: Yes I have fully participated in the care of the patient.: Yes I have reviewed all pertinent clinical information, including history, physical exam and plan: Yes Notes (Text): I have seen and examined the patient at bedside. This is 89 year old male with history of HTN, HLD and Parkinson disease who was admitted for rhabdomyolysis, TYRA, elevated troponin and multiple falls. TYRA and elevated troponin thought to be secondary to rhabdomyolysis which got resolved with IV fluids. He has been participating in physical therapy in TCU. He has been having regular bowel movements. Denies any complaints. All questions answered. Upon discharge the patient will follow-up with PMD Dr. Hurley. Dr Pamella Cotto
== END 2016-10-19 15:11 | disposition home or self-care (01) | DRG 674 ==
LOC: TRCU 13:44
PROVIDERS: ADMIT Internal Medicine; ATTEND Hospitalist
PROC: 0HBMXZZ Excision of Right Foot Skin, External Approach (ICD-10-PCS; principal; 2016-10-14)
DX: N17.9 Acute kidney failure, unspecified (principal); M62.82 Rhabdomyolysis; G20 Parkinson's disease; I10 Essential (primary) hypertension; E78.5 Hyperlipidemia, unspecified; L98.8 Other specified disorders of the skin and subcutaneous tissue; S80.212A Abrasion, left knee, initial encounter; S80.211A Abrasion, right knee, initial encounter; R26.9 Unspecified abnormalities of gait and mobility; I35.0 Nonrheumatic aortic (valve) stenosis; W19.XXXA Unspecified fall, initial encounter; Z87.891 Personal history of nicotine dependence